=== PATIENT | male | born 1960 | race Caucasian/White ===

== ENCOUNTER → 2016-05-27 | Outpatient (CLI) | payer BC ==
--- NOTE | 2016-05-27 16:31 | CR ---
EXAMINATION: Left knee HISTORY: Pain COMPARISON: None TECHNIQUE: 4 views FINDINGS: There is minimal joint space narrowing within the medial and lateral compartments of the l eft knee. No fracture or acute osseous abnormalities noted. No significant joint effusion or soft ti ssue swelling. Bone mineralization appears normal. IMPRESSION: Minimal joint space narrowing within the medial and lateral compartments.
== END ==
LOC: MW.CHORTHO 11:08
PROVIDERS: ATTEND Physician Assistant
DX: M25.562 Pain in left knee (principal)
CPT/HCPCS: 73564-26-LT; 73564-LT

== ENCOUNTER 2017-07-02 12:25 | Inpatient (IN) | payer BC, OTHER ==
[2017-07-02] MEDS ORDERED: Sodium Chloride 0.9% 10 ML Syringe FLUSH PRN (12:27)
[2017-07-02] MEDS ORDERED: Sodium Chloride 0.9% 2.5 ML Syringe FLUSH PRN (12:27)
[2017-07-02] MEDS ORDERED: Adenosine 6 MG/2 ML SDV ONE (12:31)
--- NOTE | 2017-07-02 12:33 | EDM.PDOC ---
ED HPI GENERAL MEDICAL PROBLEM - General Stated Complaint: PT CAME FROM THE CLINIC Time Seen by Provider: 07/02/17 12:25 Source of Information: Reports: Patient History Limitations: Reports: No Limitations - History of Present Illness INITIAL COMMENTS - FREE TEXT/NARRATIVE: History of present illness: Patient was sent over from Dr. Benoit's clinic for hypoxia. Patient arrived with O2 sats in the 70's with a history of shortness of breath and chest pain for the past 2 days of not feeling well. Patient has a history of melanoma his last chemotherapy was in February doing well. Patient states his last PET scan was negative and has no metastases. Review of systems: As per history of present illness and below otherwise all systems reviewed and negative. Past medical history: As per history of present illness and as reviewed below otherwise noncontributory. Surgical history: As per history of present illness and as reviewed below otherwise noncontributory. Social history: No reported history of drug or alcohol abuse. Family history: As per history of present illness and as reviewed below otherwise noncontributory. Physical exam: General: Well developed, well nourished in NAD HEENT: Atraumatic, normocephalic, pupils reactive, negative for conjunctival pallor or scleral icterus, mucous membranes moist, throat clear, neck supple, nontender, trachea midline. Lungs: Clear to auscultation, breath sounds equal bilaterally, chest nontender. Heart: Tachycardic, regular, negative for clicks, rubs, or JVD. Abdomen: Soft, nondistended, nontender. Negative for masses or hepatosplenomegaly. Negative for costovertebral tenderness. Pelvis: Stable nontender. Genitourinary: Deferred. Rectal: Deferred. Extremities: Atraumatic, negative for cords or calf pain. Neurovascular unremarkable. Neuro: Awake, alert, oriented. Cranial nerves II through XII unremarkable. Cerebellum unremarkable. Motor and sensory unremarkable throughout. Exam nonfocal. Diagnostics: []Blood cultures drawn, EKG shows sinus tachycardia with wide QRS 175. CBC with elevated white count 20,000 with left shift, chemistry showed potassium of 3.2 chloride of 89 otherwise normal, mildly elevated LFTs, d-dimer positive 2.73, lactate +2.2, chest x-ray shows bilateral infiltrates, repeat EKG after oxygen placement shows a heart rate of 109 sinus tachycardia, EtOH 42, CT scan of the chest shows no DVT and bilateral filtrates Therapeutics: []Supplemental oxygen, IV hydration, ceftriaxone 1 g given IV, DuoNebs given Impression: []Bilateral pneumonia Plan: []Admit for IV antibiotics, IV hydration oxygen Definitive disposition and diagnosis as appropriate pending reevaluation and review of above. upper abd Pain Score (Numeric/FACES): 2 - Related Data Allergies Allergy/AdvReac Type Severity Reaction Status Date / Time No Known Allergies Allergy Verified 07/02/17 12:36 Home Meds: Home Meds Levothyroxine 75 mcg PO ACBREAKFAST 07/02/17 [History] Omeprazole 20 mg PO ACBREAKFAST 07/02/17 [History] Potassium Chloride 20 meq PO DAILY 07/02/17 [History] amLODIPine Besylate [Amlodipine Besylate] 5 mg PO DAILY 07/02/17 [History] buPROPion HCl [Wellbutrin SR] 150 mg PO BID 07/02/17 [History] oxyCODONE 07/02/17 [History] predniSONE 07/02/17 [History] ED ROS GENERAL - Review of Systems Review Of Systems: See Below (See history of present illness) ED EXAM, GENERAL - Physical Exam Exam: See Below (See history of present illness) Course - Vital Signs Last Recorded V/S: Last Vital Signs Temp 99 F 07/02/17 16:10 Pulse 128 H 07/02/17 16:10 Resp 18 07/02/17 16:10 BP 153/86 H 07/02/17 16:10 Pulse Ox 87 L 07/02/17 16:10 - Orders/Labs/Meds Orders: Active Orders 24 hr Category Date Time Status Patient Status [ADT] Stat ADT 07/02/17 14:51 Active Oxygen Therapy, ED [RC] ASDIRECTED Care 07/02/17 12:27 Active CULTURE BLOOD [BC] Stat Lab 07/02/17 13:15 Received CULTURE BLOOD [BC] Stat Lab 07/02/17 13:25 Received Sodium Chloride 0.9% [Saline Flush] Med 07/02/17 12:27 Active 10 ml FLUSH ASDIRECTED PRN Sodium Chloride 0.9% [Saline Flush] Med 07/02/17 12:27 Active 2.5 ml FLUSH ASDIRECTED PRN Blood Culture x2 Reflex Set [OM.PC] Stat Oth 07/02/17 13:07 Ordered Saline Lock Insert [OM.PC] Stat Oth 07/02/17 12:27 Ordered Medication Orders Acetaminophen (Tylenol) 650 mg PO Q4H PRN PRN Reason: Pain (mild 1-3) Albuterol/Ipratropium (Duoneb 3.0-0.5 Mg/3 Ml) 3 ml NEB Q4HRRT [facility] Enoxaparin Sodium (Lovenox) 40 mg SUBCUT Q24H [facility] Last Admin: 07/02/17 16:56 Dose: 40 mg Levofloxacin/Dextrose 750 mg/ (Premix) 150 mls @ 100 mls/hr IV Q24H [facility] Last Admin: 07/02/17 16:55 Dose: 100 mls/hr Piperacillin Sod/Tazobactam (Sod 4.5 gm/ Sodium Chloride) 100 mls @ 100 mls/hr IV Q6H [facility] Last Admin: 07/02/17 18:42 Dose: 100 mls/hr Vancomycin HCl 1 gm/ Sodium (Chloride) 250 mls @ 250 mls/hr IV Q8H [facility] Sodium Chloride (Normal Saline) 1,000 mls @ 150 mls/hr IV ASDIRECTED [facility] Last Admin: 07/02/17 18:45 Dose: 150 mls/hr Ibuprofen (Motrin) 600 mg PO Q6H PRN PRN Reason: Pain Last Admin: 07/02/17 18:42 Dose: 600 mg Insulin Aspart (Novolog) 0 unit SUBCUT TIDAC [facility]; Protocol Last Admin: 07/02/17 18:12 Dose: 1 unit Ondansetron HCl (Zofran) 4 mg IVPUSH Q4H PRN PRN Reason: Nausea Oxycodone HCl (Oxycodone) 5 mg PO Q4H PRN PRN Reason: Pain Sodium Chloride (Saline Flush) 10 ml FLUSH ASDIRECTED PRN PRN Reason: Keep Vein Open Sodium Chloride (Saline Flush) 2.5 ml FLUSH ASDIRECTED PRN PRN Reason: Keep Vein Open Vancomycin HCl (Pharmacy To Dose - Vancomycin) 1 dose .XX ASDIRECTED [facility] Labs: Laboratory Tests 07/02/17 07/02/17 07/02/17 Range/Units 12:35 12:35 12:35 WBC 28.94 H (4.0-11.0) K/uL RBC 4.24 L (4.50-5.90) M/uL Hgb 15.1 (13.0-17.0) g/dL Hct 43.3 (38.0-50.0) % MCV 102.1 H (80.0-98.0) fL MCH 35.6 H (27.0-32.0) pg MCHC 34.9 (31.0-37.0) g/dL RDW Std Deviation 48.3 (28.0-62.0) fl RDW Coeff of Joseph 13 (11.0-15.0) % Plt Count 225 (150-400) K/uL MPV 9.50 (7.40-12.00) fL Add Manual Diff YES Neutrophils % (Manual) 91 H (48.0-80.0) % Lymphocytes % (Manual) 4 L (16.0-40.0) % Monocytes % (Manual) 5 (0.0-15.0) % Nucleated RBC % 0.6 /100WBC Absolute Seg Neuts 26.3 H (1.4-5.7) Lymphocytes # (Manual) 1.2 (0.6-2.4) Monocytes # (Manual) 1.4 H (0.0-0.8) Nucleated RBCs # 0 K/uL D-Dimer, Quantitative 2.73 H (0.0-0.52) mg/LFEU Lactate (0.20-2.00) mmol/L Sodium 135 L (136-148) mmol/L Potassium 3.0 L (3.5-5.1) mmol/L Chloride 89 L (98-107) mmol/L Carbon Dioxide 31.4 (21.0-32.0) mmol/L BUN 11 (7.0-18.0) mg/dL Creatinine 0.6 L (0.8-1.3) mg/dL Est Cr Clr Drug Dosing 141.12 mL/min Estimated GFR (MDRD) > 60.0 ml/min Glucose 175 H (74-106) mg/dL Calcium 8.4 L (8.5-10.1) mg/dL Total Bilirubin 1.1 H (0.2-1.0) mg/dL AST 55 H (15-37) IU/L ALT 36 (14-63) IU/L Alkaline Phosphatase 188 H (46-116) U/L Troponin I < 0.050 (0.000-0.056) ng/mL B-Natriuretic Peptide (<100) PG/ML Total Protein 6.1 L (6.4-8.2) g/dL Albumin 2.1 L (3.4-5.0) g/dL Globulin 4.0 H (2.0-3.5) g/dL Albumin/Globulin Ratio 0.5 L (1.3-2.8) Ethyl Alcohol mg/dL 07/02/17 07/02/17 07/02/17 Range/Units 12:35 12:35 12:35 WBC (4.0-11.0) K/uL RBC (4.50-5.90) M/uL Hgb (13.0-17.0) g/dL Hct (38.0-50.0) % MCV (80.0-98.0) fL MCH (27.0-32.0) pg MCHC (31.0-37.0) g/dL RDW Std Deviation (28.0-62.0) fl RDW Coeff of Joseph (11.0-15.0) % Plt Count (150-400) K/uL MPV (7.40-12.00) fL Add Manual Diff Neutrophils % (Manual) (48.0-80.0) % Lymphocytes % (Manual) (16.0-40.0) % Monocytes % (Manual) (0.0-15.0) % Nucleated RBC % /100WBC Absolute Seg Neuts (1.4-5.7) Lymphocytes # (Manual) (0.6-2.4) Monocytes # (Manual) (0.0-0.8) Nucleated RBCs # K/uL D-Dimer, Quantitative (0.0-0.52) mg/LFEU Lactate 2.2 H (0.20-2.00) mmol/L Sodium (136-148) mmol/L Potassium (3.5-5.1) mmol/L Chloride (98-107) mmol/L Carbon Dioxide (21.0-32.0) mmol/L BUN (7.0-18.0) mg/dL Creatinine (0.8-1.3) mg/dL Est Cr Clr Drug Dosing mL/min Estimated GFR (MDRD) ml/min Glucose (74-106) mg/dL Calcium (8.5-10.1) mg/dL Total Bilirubin (0.2-1.0) mg/dL AST (15-37) IU/L ALT (14-63) IU/L Alkaline Phosphatase (46-116) U/L Troponin I (0.000-0.056) ng/mL B-Natriuretic Peptide 42 (<100) PG/ML Total Protein (6.4-8.2) g/dL Albumin (3.4-5.0) g/dL Globulin (2.0-3.5) g/dL Albumin/Globulin Ratio (1.3-2.8) Ethyl Alcohol 42 mg/dL Meds: Medications Generic Name Dose Route Start Last Admin Trade Name Freq PRN Reason Stop Dose Admin Acetaminophen 650 mg 07/02/17 15:34 Tylenol PO Q4H PRN Pain (mild 1-3) Albuterol/Ipratropium 3 ml 07/02/17 18:00 Duoneb 3.0-0.5 Mg/3 Ml NEB Q4HRRT [facility] Enoxaparin Sodium 40 mg 07/02/17 15:45 07/02/17 16:56 Lovenox SUBCUT 40 mg Q24H [facility] Administration Levofloxacin/Dextrose 750 mg/ 150 mls @ 100 mls/hr 07/02/17 15:45 07/02/17 16 :55 Premix IV 100 mls/hr Q24H [facility] Administration Piperacillin Sod/Tazobactam 100 mls @ 100 mls/hr 07/02/17 18:00 07/02/17 18: 42 Sod 4.5 gm/ Sodium Chloride IV 100 mls/hr Q6H [facility] Administration Vancomycin HCl 1 gm/ Sodium 250 mls @ 250 mls/hr 07/02/17 19:00 Chloride IV Q8H [facility] Sodium Chloride 1,000 mls @ 150 mls/hr 07/02/17 16:45 07/02/17 18:45 Normal Saline IV 150 mls/hr ASDIRECTED [facility] Administration Ibuprofen 600 mg 07/02/17 17:34 07/02/17 18:42 Motrin PO 600 mg Q6H PRN Administration Pain Insulin Aspart 0 unit 07/02/17 17:24 07/02/17 18:12 Novolog SUBCUT 1 unit TIDAC [facility] Administration Protocol Ondansetron HCl 4 mg 07/02/17 15:34 Zofran IVPUSH Q4H PRN Nausea Oxycodone HCl 5 mg 07/02/17 17:34 Oxycodone PO Q4H PRN Pain Sodium Chloride 10 ml 07/02/17 12:27 Saline Flush FLUSH ASDIRECTED PRN Keep Vein Open Sodium Chloride 2.5 ml 07/02/17 12:27 Saline Flush FLUSH ASDIRECTED PRN Keep Vein Open Vancomycin HCl 1 dose 07/02/17 15:45 Pharmacy To Dose - Vancomycin .XX ASDIRECTED [facility] Discontinued Medications Generic Name Dose Route Start Last Admin Trade Name Freq PRN Reason Stop Dose Admin Albuterol/Ipratropium 3 ml 07/02/17 12:52 07/02/17 12:58 Duoneb 3.0-0.5 Mg/3 Ml NEB 07/02/17 12:53 3 ml ONETIME ONE Administration Albuterol/Ipratropium Confirm 07/02/17 12:54 07/02/17 13:11 Duoneb 3.0-0.5 Mg/3 Ml Administered 07/02/17 12:55 Not Given Dose 3 ml .ROUTE .STK-MED ONE Albuterol/Ipratropium 3 ml 07/02/17 14:43 07/02/17 15:01 Duoneb 3.0-0.5 Mg/3 Ml NEB 07/02/17 14:44 3 ml ONETIME ONE Administration Lactated Ringer's 1,000 mls @ 999 mls/hr 07/02/17 12:38 07/02/17 12:38 Ringers, Lactated IV 07/02/17 13:38 999 mls/hr .BOLUS ONE Administration Ceftriaxone Sodium/Dextrose 1 50 mls @ 100 mls/hr 07/02/17 13:13 07/02/17 13: 48 gm/ Premix IV 07/02/17 13:42 100 mls/hr ONETIME ONE Administration Sodium Chloride 1,000 mls @ 125 mls/hr 07/02/17 13:45 07/02/17 13:44 Normal Saline IV 125 mls/hr ASDIRECTED [facility] Administration Sodium Chloride 1,000 mls @ 999 mls/hr 07/02/17 16:35 07/02/17 17:01 Normal Saline IV 07/02/17 17:35 999 mls/hr STAT ONE Administration Magnesium Sulfate 2 gm/ Premix 50 mls @ 50 mls/hr 07/02/17 17:34 07/02/17 18: 13 IV 07/02/17 18:33 50 mls/hr ONETIME ONE Administration Iopamidol 50 ml 07/02/17 16:08 07/02/17 16:09 Isovue Multipack-370 (76%) IVPUSH 07/02/17 16:09 50 ml ONETIME ONE Administration Potassium Chloride 40 meq 07/02/17 14:53 07/02/17 15:09 Klor-Con M20 PO 07/02/17 14:54 40 meq ONETIME ONE Administration Departure - Departure Time of Disposition: 18:49 Disposition: Admitted As Inpatient 66 Condition: Fair Clinical Impression: Bilateral pneumonia Qualifiers: Pneumonia type: due to unspecified organism Lung location: lower lobe of lung Qualified Code(s): J18.1 - Lobar pneumonia, unspecified organism - Discharge Information - My Orders Last 24 Hours: My Active Orders 07/02/17 12:27 Oxygen Therapy, ED [RC] ASDIRECTED Sodium Chloride 0.9% [Saline Flush] 10 ml FLUSH ASDIRECTED PRN Sodium Chloride 0.9% [Saline Flush] 2.5 ml FLUSH ASDIRECTED PRN Saline Lock Insert [OM.PC] Stat 07/02/17 13:07 Blood Culture x2 Reflex Set [OM.PC] Stat 07/02/17 13:15 CULTURE BLOOD [BC] Stat 07/02/17 13:25 CULTURE BLOOD [BC] Stat 07/02/17 14:51 Patient Status [ADT] Stat - Assessment/Plan Last 24 Hours: My Active Orders 07/02/17 12:27 Oxygen Therapy, ED [RC] ASDIRECTED Sodium Chloride 0.9% [Saline Flush] 10 ml FLUSH ASDIRECTED PRN Sodium Chloride 0.9% [Saline Flush] 2.5 ml FLUSH ASDIRECTED PRN Saline Lock Insert [OM.PC] Stat 07/02/17 13:07 Blood Culture x2 Reflex Set [OM.PC] Stat 07/02/17 13:15 CULTURE BLOOD [BC] Stat 07/02/17 13:25 CULTURE BLOOD [BC] Stat 07/02/17 14:51 Patient Status [ADT] Stat
[2017-07-02] MEDS ORDERED: Lactated Ringers 1,000 ML IV ONE (12:38)
[2017-07-02] MEDS ORDERED: Albuterol/Ipratropium 3.0-0.5 MG/3 ML Neb Soln NEB ONE ×2 (12:52→14:43)
[2017-07-02] MEDS ORDERED: Albuterol/Ipratropium 3.0-0.5 MG/3 ML Neb Soln ONE (12:54)
--- NOTE | 2017-07-02 13:12 | CR ---
EXAMINATION: Portable chest radiograph. HISTORY: Shortness of breath. FINDINGS: The trachea is midline. The cardiomediastinal silhouette is within normal limits. No leg infiltrates noted within the right suprahilar region and within the lung bases bilaterally. No pleural effusion o r pneumothorax. Osseous structures appear unremarkable. IMPRESSION: Very bilateral pulmonary infiltrates, correlate clinically for an infectious etiology.
[2017-07-02] MEDS ORDERED: cefTRIAXone 1 GM in Premix Bag 1 BAG IV ONE (13:13)
[2017-07-02] MEDS ORDERED: Sodium Chloride 0.9% 1,000 ML IV SCH (13:45)
[2017-07-02 14:29] LABS: CHLORIDE,CL 89 mmol/L (98-107); SODIUM,NA 135 mmol/L (136-148)
[2017-07-02] MEDS ORDERED: Potassium Chloride 20 MEQ Tab.ER PO ONE (14:53)
[2017-07-02] MEDS ORDERED: Ondansetron 4 MG/2 ML SDV IVPUSH PRN (15:34)
[2017-07-02] MEDS ORDERED: Acetaminophen 325 MG Tab PO PRN (15:34)
--- NOTE | 2017-07-02 15:47 | PCM.HP ---
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 He was noted to be hypoxic on room air at 59%. He was brought to the ED for further work-up. He reports he started feeling ill last week and noticing dyspnea and productive cough. He denies fevers, but reports body aches and general malaise. No chest pain, but has noticed some palpitations/fluttering intermittently. Reports his phlegm has been a "rainbow of colors" but no bloody sputum. No abdominal pain or urinary troubles. He has had a poor appetite and hasn't been eating well. He reports he smokes 1 ppd or cigarettes, with some gum to help with quitting, he reports daily alcohol use, 3-4 drinks daily, without having withdrawl symptoms ever. He also reports smoking marijuana for help with pain from melanoma, but has not used this in awhile. In the ED leukocytosis noted at 28,940, D dimer 2.73, Lactate 2.2 Na 135, K+ 3.0 Cl 89, BUN 11, Cr 0.6, total bili 1.1, AST 55, ALT 36, Alk phos 188, which are near baseline. CXR revealed bilateral pulmonary infiltrates. HR noted to be tachycardic with a wide complex which resolved with oxygen administration, he has continued to have tachycardia 110-120s. he was treated with, PO potassium, Rocephin and 1 L NS bolus in the ED. He will be admitted with sepsis, acute hypoxic respiratory failure, and severe CAP. PCP, Dr Benoit. Oncology, Dr Hilton. upper abd Pain Score (Numeric/FACES): 2 - Related Data Allergies/Adverse Reactions: Allergies Allergy/AdvReac Type Severity Reaction Status Date / Time No Known Allergies Allergy Verified 07/02/17 12:36 Home Medications: Home Meds Levothyroxine 75 mcg PO ACBREAKFAST 07/02/17 [History] Omeprazole 20 mg PO ACBREAKFAST 07/02/17 [History] Potassium Chloride 20 meq PO DAILY 07/02/17 [History] amLODIPine Besylate [Amlodipine Besylate] 5 mg PO DAILY 07/02/17 [History] buPROPion HCl [Wellbutrin SR] 150 mg PO BID 07/02/17 [History] oxyCODONE 07/02/17 [History] predniSONE 07/02/17 [History] Past Medical History Cardiovascular History: Reports: Hypertension. Denies: Afib, Blood Clots/VTE/ DVT, CAD, VT Respiratory History: Reports: None. Denies: Asthma, COPD Gastrointestinal History: Reports: GERD Genitourinary History: Reports: None. Denies: Chronic Renal Insuffiency Musculoskeletal History: Reports: Neck Pain, Chronic Neurological History: Reports: None. Denies: CVA, TIA Psychiatric History: Reports: Addiction, Depression Endocrine/Metabolic History: Reports: Diabetes, Type II (steroid induced.), Hypothyroidism Oncologic (Cancer) History: Reports: Malignant Melanoma, Metastatic (melanoma to L axilla with spread to thyroid) - Past Surgical History Dermatological Surgical History: Reports: Skin Biopsy Social & Family History - Family History Family Medical History: Noncontributory - Tobacco Use Smoking Status *Q: Current Every Day Smoker Years of Tobacco use: 36 Packs/Tins Daily: 1 - Caffeine Use Caffeine Use: Reports: Coffee, Soda, Tea - Alcohol Use Days Per Week of Alcohol Use: 7 Number of Drinks Per Day: 3 Total Drinks Per Week: 21 Alcohol Use Frequency: Daily - Recreational Drug Use Recreational Drug Use: Yes Drug Use in Last 12 Months: Yes Recreational Drug Type: Reports: Marijuana/Hashish Recreational Drug Use Frequency: Monthly - Living Situation & Occupation Living situation: Reports: Alone Occupation: Employed H&P Review of Systems - Review of Systems: Review Of Systems: See Below General: Reports: Malaise, Weakness, Fatigue, Decreased Appetite HEENT: Reports: Headaches. Denies: Sinus Congestion, Sore Throat, Vertigo Pulmonary: Reports: Shortness of Breath, Cough, Sputum. Denies: Hemoptysis Cardiovascular: Reports: Palpitations, Dyspnea on Exertion. Denies: Chest Pain , Edema, Lightheadedness Gastrointestinal: Reports: No Symptoms. Denies: Abdominal Pain, Black Stool, Bloody Stool, Constipation, Nausea, Vomiting Genitourinary: Reports: No Symptoms. Denies: Dysuria, Frequency, Burning Musculoskeletal: Reports: Neck Pain (baseline and chronic, no changes.) Skin: Reports: No Symptoms Psychiatric: Reports: No Symptoms Neurological: Reports: No Symptoms Hematologic/Lymphatic: Reports: No Symptoms Immunologic: Reports: No Symptoms Exam - Exam Exam: See Below - Vital Signs Vital Signs: Last Vital Signs Temp 98.2 F 07/02/17 14:21 Pulse 114 H 07/02/17 14:21 Resp 16 07/02/17 14:21 BP 138/79 07/02/17 14:21 Pulse Ox 96 07/02/17 15:11 Weight: 72.575 kg - Exam General: Alert, Oriented, Cooperative, Mild Distress (dyspnea) HEENT: Nares Patent, Posterior Pharynx Clear, Pupils Equal, Pupils Reactive. No : Mucosa Moist & [place] (dry) Neck: Supple, Trachea Midline, Full Range of Motion (does reposition a lot due to neck pain and becoming uncomfortable in one position. reports this is normal for him. ). No: Lymphadenopathy Lungs: Crackles (R mid and upper lobes), Rhonchi. No: Normal Respiratory Effort (dyspnea noted) Cardiovascular: Regular Rhythm, Normal S1, Normal S2, Tachycardia. No: Systolic Murmur GI/Abdominal Exam: Normal Bowel Sounds, Soft, Non-Tender, No Organomegaly, No Distention, No Abnormal Bruit, No Mass, Pelvis Stable Back Exam: Normal Inspection, Full Range of Motion, NT Extremities: Normal Inspection, Normal Range of Motion, Non-Tender, No Pedal Edema, Normal Capillary Refill Skin: Dry, Other (dry patchy areas of skin to legs and back. ) Neuro Extensive - Mental Status: Alert, Oriented x3, Normal Mood/Affect, Normal Cognition Neuro Extensive - Motor, Sensory, Reflexes: CN II-XII Intact, Normal Gait Psychiatric: Alert, Normal Affect, Normal Mood - Patient Data Lab Results Last 24 hrs: Laboratory Results - last 24 hr 07/02/17 07/02/17 07/02/17 Range/Units 12:35 12:35 12:35 WBC 28.94 H (4.0-11.0) K/uL RBC 4.24 L (4.50-5.90) M/uL Hgb 15.1 (13.0-17.0) g/dL Hct 43.3 (38.0-50.0) % MCV 102.1 H (80.0-98.0) fL MCH 35.6 H (27.0-32.0) pg MCHC 34.9 (31.0-37.0) g/dL RDW Std Deviation 48.3 (28.0-62.0) fl RDW Coeff of Joseph 13 (11.0-15.0) % Plt Count 225 (150-400) K/uL MPV 9.50 (7.40-12.00) fL Add Manual Diff YES Neutrophils % (Manual) 91 H (48.0-80.0) % Lymphocytes % (Manual) 4 L (16.0-40.0) % Monocytes % (Manual) 5 (0.0-15.0) % Nucleated RBC % 0.6 /100WBC Absolute Seg Neuts 26.3 H (1.4-5.7) Lymphocytes # (Manual) 1.2 (0.6-2.4) Monocytes # (Manual) 1.4 H (0.0-0.8) Nucleated RBCs # 0 K/uL D-Dimer, Quantitative 2.73 H (0.0-0.52) mg/LFEU Lactate (0.20-2.00) mmol/L Sodium 135 L (136-148) mmol/L Potassium 3.0 L (3.5-5.1) mmol/L Chloride 89 L (98-107) mmol/L Carbon Dioxide 31.4 (21.0-32.0) mmol/L BUN 11 (7.0-18.0) mg/dL Creatinine 0.6 L (0.8-1.3) mg/dL Est Cr Clr Drug Dosing 141.12 mL/min Estimated GFR (MDRD) > 60.0 ml/min Glucose 175 H (74-106) mg/dL Calcium 8.4 L (8.5-10.1) mg/dL Total Bilirubin 1.1 H (0.2-1.0) mg/dL AST 55 H (15-37) IU/L ALT 36 (14-63) IU/L Alkaline Phosphatase 188 H (46-116) U/L Troponin I < 0.050 (0.000-0.056) ng/mL B-Natriuretic Peptide (<100) PG/ML Total Protein 6.1 L (6.4-8.2) g/dL Albumin 2.1 L (3.4-5.0) g/dL Globulin 4.0 H (2.0-3.5) g/dL Albumin/Globulin Ratio 0.5 L (1.3-2.8) Ethyl Alcohol mg/dL 07/02/17 07/02/17 07/02/17 Range/Units 12:35 12:35 12:35 WBC (4.0-11.0) K/uL RBC (4.50-5.90) M/uL Hgb (13.0-17.0) g/dL Hct (38.0-50.0) % MCV (80.0-98.0) fL MCH (27.0-32.0) pg MCHC (31.0-37.0) g/dL RDW Std Deviation (28.0-62.0) fl RDW Coeff of Joseph (11.0-15.0) % Plt Count (150-400) K/uL MPV (7.40-12.00) fL Add Manual Diff Neutrophils % (Manual) (48.0-80.0) % Lymphocytes % (Manual) (16.0-40.0) % Monocytes % (Manual) (0.0-15.0) % Nucleated RBC % /100WBC Absolute Seg Neuts (1.4-5.7) Lymphocytes # (Manual) (0.6-2.4) Monocytes # (Manual) (0.0-0.8) Nucleated RBCs # K/uL D-Dimer, Quantitative (0.0-0.52) mg/LFEU Lactate 2.2 H (0.20-2.00) mmol/L Sodium (136-148) mmol/L Potassium (3.5-5.1) mmol/L Chloride (98-107) mmol/L Carbon Dioxide (21.0-32.0) mmol/L BUN (7.0-18.0) mg/dL Creatinine (0.8-1.3) mg/dL Est Cr Clr Drug Dosing mL/min Estimated GFR (MDRD) ml/min Glucose (74-106) mg/dL Calcium (8.5-10.1) mg/dL Total Bilirubin (0.2-1.0) mg/dL AST (15-37) IU/L ALT (14-63) IU/L Alkaline Phosphatase (46-116) U/L Troponin I (0.000-0.056) ng/mL B-Natriuretic Peptide 42 (<100) PG/ML Total Protein (6.4-8.2) g/dL Albumin (3.4-5.0) g/dL Globulin (2.0-3.5) g/dL Albumin/Globulin Ratio (1.3-2.8) Ethyl Alcohol 42 mg/dL Result Diagrams: 07/02/17 12:35 07/02/17 12:35 EKG INTERPRETATION EKG Date: 07/02/17 Rhythm: NSR (tachycardia) P-Wave: Present QRS: Normal ST-T: Normal QT: Normal *Q Meaningful Use (ADM) - VTE Risk Assess *Q Each Risk Factor Represents 1 Point: Age 41 - 59 years, Sepsis, Serious lung disease including pneumonia Total Score 1 Point Risk Factors: 3 Each Risk Factor Represents 2 Points: Malignancy (present or previous) Total Score 2 Point Risk Factors: 2 Each Risk Factor Represents 3 Points: None Total Score 3 Point Risk Factors: 0 Each Risk Factor Represents 5 Points: None Total Score 5 Point Risk Factors: 0 Venous Thromboembolism Risk Factor Score *Q: 5 - Problem List (1) Acute respiratory failure with hypoxemia SNOMED Code(s): 020254342 ICD Code: J96.01 - ACUTE RESPIRATORY FAILURE WITH HYPOXIA Status: Acute Current Visit: Yes (2) Bilateral pneumonia SNOMED Code(s): 043172684 ICD Code: J18.9 - PNEUMONIA, UNSPECIFIED ORGANISM Status: Acute Current Visit: Yes Qualifiers: Pneumonia type: due to unspecified organism Lung location: lower lobe of lung Qualified Code(s): J18.1 - Lobar pneumonia, unspecified organism (3) Gram-negative infection SNOMED Code(s): 778246652 ICD Code: A49.9 - BACTERIAL INFECTION, UNSPECIFIED Status: Suspected Current Visit: Yes (4) Sepsis SNOMED Code(s): 44268582 ICD Code: A41.9 - SEPSIS, UNSPECIFIED ORGANISM Status: Acute Current Visit: Yes (5) Malignant melanoma, metastatic SNOMED Code(s): 777882834 ICD Code: C79.9 - SECONDARY MALIGNANT NEOPLASM OF UNSPECIFIED SITE Status: Chronic Current Visit: Yes (6) HTN (hypertension) SNOMED Code(s): 78394312 ICD Code: I10 - ESSENTIAL (PRIMARY) HYPERTENSION Status: Chronic Current Visit: Yes Qualifiers: Hypertension type: essential hypertension Qualified Code(s): I10 - Essential (primary) hypertension (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 SNOMED Code(s): 223893686 ICD Code: T38.0X1A - POISONING BY GLUCOCORT/SYNTH ANALOG, ACCIDENTAL, INIT; D84.8 - OTHER SPECIFIED IMMUNODEFICIENCIES Status: Chronic Current Visit: Yes (8) Hypothyroidism SNOMED Code(s): 61683746 ICD Code: E03.9 - HYPOTHYROIDISM, UNSPECIFIED Status: Chronic Current Visit: Yes Qualifiers: Hypothyroidism type: acquired Qualified Code(s): E03.9 - Hypothyroidism, unspecified (9) DM type 2 (diabetes mellitus, type 2) SNOMED Code(s): 68320401 ICD Code: E11.9 - TYPE 2 DIABETES MELLITUS WITHOUT COMPLICATIONS Status: Chronic Current Visit: Yes Qualifiers: Diabetes mellitus mcc insulin use: with roasterman use Diabetes mellitus complication status: without complication Qualified Code(s): E11.9 - Type 2 diabetes mellitus without complications; Z79.4 - MCFP (current) use of insulin Problem List Initiated/Reviewed/Updated: Yes Orders Last 24hrs: Active Orders 24 hr Category Date Time Status Patient Status [ADT] Stat ADT 07/02/17 14:51 Active Ambulate [RC] ASDIRECTED Care 07/02/17 15:34 Ordered Cardiac Monitoring [RC] . DIRECTED Care 07/02/17 12:27 Active EKG Documentation Completion [RC] STAT Care 07/02/17 12:27 Active Intake and Output [RC] QSHIFT Care 07/02/17 15:34 Ordered Overnight Pulse Oximetry [RC] Click to Edit Care 07/02/17 15:44 Ordered Oxygen Therapy [RC] PRN Care 07/02/17 15:34 Ordered Oxygen Therapy, ED [RC] ASDIRECTED Care 07/02/17 12:27 Active RT Aerosol Therapy [RC] ASDIRECTED Care 07/02/17 12:52 Active RT Aerosol Therapy [RC] ASDIRECTED Care 07/02/17 14:44 Active RT Aerosol Therapy [RC] ASDIRECTED Care 07/02/17 15:37 Ordered Telemetry Monitoring [Cardiac Monitoring] [RC] . Care 07/02/17 15:45 Ordered DIRECTED VTE/DVT Education [RC] PER UNIT ROUTINE Care 07/02/17 15:34 Ordered Vital Signs [RC] Q4H Care 07/02/17 15:34 Ordered Regular Diet [DIET] Diet 07/02/17 Dinner Ordered Ang Chest [CT] Stat Exams 07/02/17 14:33 Ordered CBC WITH AUTO DIFF [HEME] AM Lab 07/03/17 05:11 Ordered CBC WITH AUTO DIFF [HEME] AM Lab 07/04/17 05:11 Ordered CBC WITH AUTO DIFF [HEME] AM Lab 07/05/17 05:11 Ordered CBC WITH AUTO DIFF [HEME] AM Lab 07/06/17 05:11 Ordered COMPREHENSIVE METABOLIC PN,CMP [CHEM] AM Lab 07/03/17 05:11 Ordered COMPREHENSIVE METABOLIC PN,CMP [CHEM] AM Lab 07/04/17 05:11 Ordered COMPREHENSIVE METABOLIC PN,CMP [CHEM] AM Lab 07/05/17 05:11 Ordered COMPREHENSIVE METABOLIC PN,CMP [CHEM] AM Lab 07/06/17 05:11 Ordered CULTURE BLOOD [BC] Stat Lab 07/02/17 13:15 Received CULTURE BLOOD [BC] Stat Lab 07/02/17 13:25 Received CULTURE SPUTUM + SMEAR [RM] Stat Lab 07/02/17 15:34 Ordered INFLUENZA A+B AG SCREEN [RM] Routine Lab 07/02/17 15:40 Ordered LACTIC ACID,WHOLE BLOOD [BG] Q5H Lab 07/02/17 17:30 Ordered LACTIC ACID,WHOLE BLOOD [BG] Q5H Lab 07/02/17 22:30 Ordered MAGNESIUM [CHEM] AM Lab 07/03/17 05:11 Ordered MAGNESIUM [CHEM] AM Lab 07/04/17 05:11 Ordered MAGNESIUM [CHEM] AM Lab 07/05/17 05:11 Ordered MAGNESIUM [CHEM] AM Lab 07/06/17 05:11 Ordered MAGNESIUM [CHEM] Routine Lab 07/02/17 15:45 Ordered UA W/MICROSCOPIC [URIN] Stat Lab 07/02/17 15:34 Ordered Acetaminophen [Tylenol] Med 07/02/17 15:34 Ordered 650 mg PO Q4H PRN Albuterol/Ipratropium [DuoNeb 3.0-0.5 MG/3 ML] Med 07/02/17 18:00 Ordered 3 ml NEB Q4HRRT Enoxaparin [Lovenox] Med 07/02/17 15:45 Ordered 40 mg SUBCUT Q24H Levofloxacin/Dextrose 5%-Water [Levaquin in D5W 750 MG/ Med 07/02/17 15:45 Ordered 150 ML] 750 mg Premix Bag 1 bag IV Q24H Ondansetron [Zofran] Med 07/02/17 15:34 Ordered 4 mg IVPUSH Q4H PRN Piperacillin/Tazobactam [Piperacil-Tazobact] 4.5 gm Med 07/02/17 15:45 Ordered Sodium Chloride 0.9% [Normal Saline] 100 ml IV Q6H Sodium Chloride 0.9% [Normal Saline] 1,000 ml Med 07/02/17 13:45 Active IV ASDIRECTED Sodium Chloride 0.9% [Saline Flush] Med 07/02/17 12:27 Active 10 ml FLUSH ASDIRECTED PRN Sodium Chloride 0.9% [Saline Flush] Med 07/02/17 12:27 Active 2.5 ml FLUSH ASDIRECTED PRN Vancomycin Pharmacy to Dose [Pharmacy to Dose - Med 07/02/17 15:45 Ordered Vancomycin] 1 dose .XX ASDIRECTED Blood Culture x2 Reflex Set [OM.PC] Stat Oth 07/02/17 13:07 Ordered Pulse Oximetry Continuous Monitoring [OM.PC] Routine Oth 07/02/17 15:44 Ordered Saline Lock Insert [OM.PC] Stat Oth 07/02/17 12:27 Ordered Resuscitation Status Routine Resus Stat 07/02/17 15:34 Ordered Medication Orders Acetaminophen (Tylenol) 650 mg PO Q4H PRN PRN Reason: Pain (mild 1-3) Albuterol/Ipratropium (Duoneb 3.0-0.5 Mg/3 Ml) 3 ml NEB Q4HRRT [facility]GELITO Enoxaparin Sodium (Lovenox) 40 mg SUBCUT Q24H ANGELITO Sodium Chloride (Normal Saline) 1,000 mls @ 125 mls/hr IV ASDIRECTED ANGELITO Last Admin: 07/02/17 13:44 Dose: 125 mls/hr Levofloxacin/Dextrose 750 mg/ (Premix) 150 mls @ 100 mls/hr IV Q24H [facility] Piperacillin Sod/Tazobactam (Sod 4.5 gm/ Sodium Chloride) 100 mls @ 100 mls/hr IV Q6H [facility] Ondansetron HCl (Zofran) 4 mg IVPUSH Q4H PRN PRN Reason: Nausea Sodium Chloride (Saline Flush) 10 ml FLUSH ASDIRECTED PRN PRN Reason: Keep Vein Open Sodium Chloride (Saline Flush) 2.5 ml FLUSH ASDIRECTED PRN PRN Reason: Keep Vein Open Vancomycin HCl (Pharmacy To Dose - Vancomycin) 1 dose .XX ASDIRECTED [facility] Assessment/Plan Comment:: This 56 flor old male admitted with acute hypoxic respiratory failure, sepsis and severe community acquired pneumonia 1. Sepsis: Secondary to severe CAP, will treat for possible gram negative infection due to immunocompromised state with Levaquin, Zosyn and Vancomycin. Trend lactic acid, resuscitate with IVFs, will give another bolus now due tachycardia. BC pending, sputum culture pending and UA/UC pending as well. Oxygen for acute hypoxic respiratory failure, continuous pulse oximetry. D dimer elevated in ED, CT angio obtained of chest, which revealed patchy ground glass opacity bilaterally, most notable to right upper lobe, no Pulmonary Embolism identified, left axillary lymphadenopathy and no pulmonary emphysema. Sputum gram stain reveals few epithelial cells, abundant gram positive cocci in pain and clusters and abundant gram negative rods. Will obtain influenza swab. 2. Tachycardia: Likely secondary to above, IVF resuscitation and monitor on telemetry. Supplement Potassium and Magnesium. 3. HTN: Monitor for now. Hold home medications due to sepsis. Reassess in am. 4. Steroid induced DM: Continue Tresiba nightly. will check BS TIDAC and use SSI due to severe infection. 5. Hypothyroid: Stable, continue Levothyroxine. 6. Metastatic melanoma: Has been stable, per patient reports two most recent PET scans have been stable. Continue Prednisone 20 mg daily 7. Neck pain: Stable. Continue Motrin and Oxycodone. VTE prophylaxis: Lovenox. Dispo: 3-4 days pending improvement.
[2017-07-02] MEDS ORDERED: Iopamidol 755 MG/ML 200 ML Multipack Bottle IVPUSH ONE (16:08)
--- NOTE | 2017-07-02 16:18 | CT ---
EXAMINATION: CTA chest HISTORY: Pain COMPARISON: Radiographs from the same day TECHNIQUE: Axial CT images obtained through the chest following the administration of 50 mL of Isovue -370 in the right antecubital fossa. Due to poor bolus timing and additional scan was performed. Leonid nal and sagittal reconstructions obtained. FINDINGS: Groundglass opacities are noted within the right upper lobe, and less so within the right m iddle lobe and along the left major fissure within the left upper lobe. Trace bilateral pleural effus ions. Mild dependent atelectasis. The heart is normal in size without a pericardial effusion. Thoraci c aorta is normal in caliber. Main and central pulmonary arteries are patent without a identified pul monary embolism. No mediastinal or hilar lymphadenopathy. Central airways are clear. Left axillary ly mphadenopathy is noted measuring up to 2.5 cm in the short axis. No suspicious osseous abnormalities. IMPRESSION: 1. Patchy groundglass noted bilaterally most notable within the right upper lobe. Differential includ es an atypical infectious etiology, pulmonary edema, alveolar proteinosis, and metastatic disease is not excluded. 2. Left axillary lymphadenopathy. 3. No pulmonary emphysema with some identified.
[2017-07-02] MEDS ORDERED: Sodium Chloride 0.9% 1,000 ML IV ONE (16:35)
[2017-07-02] MEDS: Levofloxacin/Dextrose 5%-Water 750 MG in Premix Bag 1 BAG IV SCH (16:55)
[2017-07-02] MEDS: Enoxaparin 40 MG/0.4 ML Syringe SUBCUT SCH (16:56)
[2017-07-02] MEDS ORDERED: Magnesium Sulfate/Water 2 GM in Premix Bag 1 BAG IV ONE (17:34)
[2017-07-02] MEDS ORDERED: oxyCODONE 5 MG Tab PO PRN (17:34)
[2017-07-02] MEDS: Insulin Aspart 100 Units/ML 3 ML Pen SUBCUT SCH (18:12)
[2017-07-02] MEDS: Piperacillin/Tazobactam 4.5 GM in Sodium Chloride 0.9% 100 ML IV SCH ×2 (18:42→23:13)
[2017-07-02] MEDS: Ibuprofen 600 MG Tab PO PRN (18:42)
[2017-07-02] MEDS: Sodium Chloride 0.9% 1,000 ML IV SCH (18:45)
[2017-07-02] MEDS: Albuterol/Ipratropium 3.0-0.5 MG/3 ML Neb Soln NEB SCH ×2 (19:08→21:59)
[2017-07-02] MEDS ORDERED: Sodium Chloride 0.9% 250 ML ONE (20:49)
[2017-07-03] MEDS: Ibuprofen 600 MG Tab PO PRN (00:21)
[2017-07-03] MEDS: Albuterol/Ipratropium 3.0-0.5 MG/3 ML Neb Soln NEB SCH ×6 (02:46→21:56)
[2017-07-03] MEDS: Piperacillin/Tazobactam 4.5 GM in Sodium Chloride 0.9% 100 ML IV SCH ×3 (05:23→17:47)
[2017-07-03] MEDS: Sodium Chloride 0.9% 1,000 ML IV SCH ×2 (05:28→20:55)
[2017-07-03 06:30] LABS: CHLORIDE,CL 95 mmol/L (98-107); SODIUM,NA 137 mmol/L (136-148)
[2017-07-03] MEDS: Insulin Aspart 100 Units/ML 3 ML Pen SUBCUT SCH ×3 (06:41→17:47)
[2017-07-03] MEDS ORDERED: Potassium Chloride 20 MEQ Tab.ER PO ONE ×2 (06:53→17:19)
[2017-07-03] MEDS ORDERED: Magnesium Sulfate/Water 2 GM in Premix Bag 1 BAG IV ONE (06:53)
[2017-07-03] MEDS ORDERED: Potassium Chloride 40 MEQ in Sodium Chloride 0.9% 480 ML IV ONE (06:53)
[2017-07-03] MEDS ORDERED: POTASSIUM CHLORIDE IV ONE (07:02)
[2017-07-03] MEDS ORDERED: SODIUM CHLORIDE 0.9% IV ONE (07:02)
[2017-07-03] MEDS ORDERED: MAGNESIUM SULFATE IV ONE (07:02)
[2017-07-03] MEDS: buPROPion 150 MG Tab.SR PO SCH ×2 (08:40→20:38)
[2017-07-03] MEDS: amLODIPine 5 MG Tab PO SCH (08:40)
[2017-07-03] MEDS: predniSONE 20 MG Tab PO SCH (08:40)
[2017-07-03] MEDS ORDERED: oxyCODONE 5 MG Tab PO PRN (08:41)
[2017-07-03] MEDS: Lisinopril 10 MG Tab PO SCH (08:41)
[2017-07-03] MEDS ORDERED: Ibuprofen 600 MG Tab PO PRN (08:41)
--- NOTE | 2017-07-03 09:24 | PCM.PN ---
- General Info Date of Service: 07/03/17 Admission Dx/Problem (Free Text): Admission Diagnosis/Problem Admission Diagnosis/Problem Bilateral pneumonia Subjective Update: Sitting up in the chair, feeling a little better today. But continues to be short of breath with a productive cough. No chest pain or abdominal pain. Some loose stools. Functional Status: Reports: Pain Controlled, Tolerating Diet, Ambulating, Urinating - Review of Systems HEENT: Reports: No Symptoms. Denies: Headaches, Visual Changes Pulmonary: Reports: Shortness of Breath, Cough, Sputum. Denies: Hemoptysis Cardiovascular: Reports: No Symptoms. Denies: Chest Pain, Palpitations, Edema Gastrointestinal: Reports: Diarrhea (loose stools). Denies: Abdominal Pain, Nausea, Vomiting Genitourinary: Reports: No Symptoms. Denies: Dysuria, Frequency, Burning Musculoskeletal: Reports: Neck Pain (chronic.) Neurological: Reports: No Symptoms Psychiatric: Reports: No Symptoms - Patient Data Vitals - Most Recent: Last Vital Signs Temp 97.6 F 07/03/17 07:46 Pulse 122 H 07/03/17 07:46 Resp 20 07/03/17 07:46 BP 161/94 H 07/03/17 08:41 Pulse Ox 91 L 07/03/17 07:46 Weight - Most Recent: 72.575 kg I&O - Last 24 Hours: Intake & Output 07/02/17 07/03/17 07/03/17 22:59 06:59 14:59 Intake Total 400 3350 Output Total 1600 Balance 400 1750 Lab Results Last 24 Hours: Laboratory Results - last 24 hr 07/02/17 07/02/17 07/02/17 Range/Units 12:35 12:35 12:35 WBC 28.94 H (4.0-11.0) K/uL RBC 4.24 L (4.50-5.90) M/uL Hgb 15.1 (13.0-17.0) g/dL Hct 43.3 (38.0-50.0) % MCV 102.1 H (80.0-98.0) fL MCH 35.6 H (27.0-32.0) pg MCHC 34.9 (31.0-37.0) g/dL RDW Std Deviation 48.3 (28.0-62.0) fl RDW Coeff of Joseph 13 (11.0-15.0) % Plt Count 225 (150-400) K/uL MPV 9.50 (7.40-12.00) fL Add Manual Diff YES Neutrophils % (Manual) 91 H (48.0-80.0) % Band Neutrophils % % Lymphocytes % (Manual) 4 L (16.0-40.0) % Monocytes % (Manual) 5 (0.0-15.0) % Nucleated RBC % 0.6 /100WBC Absolute Seg Neuts 26.3 H (1.4-5.7) Band Neutrophils # Lymphocytes # (Manual) 1.2 (0.6-2.4) Monocytes # (Manual) 1.4 H (0.0-0.8) Nucleated RBCs # 0 K/uL D-Dimer, Quantitative 2.73 H (0.0-0.52) mg/LFEU Lactate (0.20-2.00) mmol/L Sodium 135 L (136-148) mmol/L Potassium 3.0 L (3.5-5.1) mmol/L Chloride 89 L (98-107) mmol/L Carbon Dioxide 31.4 (21.0-32.0) mmol/L BUN 11 (7.0-18.0) mg/dL Creatinine 0.6 L (0.8-1.3) mg/dL Est Cr Clr Drug Dosing 141.12 mL/min Estimated GFR (MDRD) > 60.0 ml/min Glucose 175 H (74-106) mg/dL POC Glucose (60-110) mg/dL Calcium 8.4 L (8.5-10.1) mg/dL Magnesium (1.5-2.0) mg/dL Total Bilirubin 1.1 H (0.2-1.0) mg/dL AST 55 H (15-37) IU/L ALT 36 (14-63) IU/L Alkaline Phosphatase 188 H (46-116) U/L Troponin I < 0.050 (0.000-0.056) ng/mL B-Natriuretic Peptide (<100) PG/ML Total Protein 6.1 L (6.4-8.2) g/dL Albumin 2.1 L (3.4-5.0) g/dL Globulin 4.0 H (2.0-3.5) g/dL Albumin/Globulin Ratio 0.5 L (1.3-2.8) TSH 3rd Generation (0.36-3.74) uIU/mL Urine Color Urine Appearance Urine pH (5.0-8.0) Ur Specific [place] (1.001-1.035) Urine Protein (NEGATIVE) mg/dL Urine Glucose (UA) (NEGATIVE) mg/dL Urine Ketones (NEGATIVE) mg/dL Urine Occult Blood (NEGATIVE) Urine Nitrite (NEGATIVE) Urine Bilirubin (NEGATIVE) Urine Urobilinogen (<2.0) EU/dL Ur Leukocyte Esterase (NEGATIVE) Urine RBC (0-2/HPF) Urine WBC (0-5/HPF) Ur Epithelial Cells (NONE-FEW) Urine Bacteria (NEGATIVE) Ethyl Alcohol mg/dL 07/02/17 07/02/17 07/02/17 Range/Units 12:35 12:35 12:35 WBC (4.0-11.0) K/uL RBC (4.50-5.90) M/uL Hgb (13.0-17.0) g/dL Hct (38.0-50.0) % MCV (80.0-98.0) fL MCH (27.0-32.0) pg MCHC (31.0-37.0) g/dL RDW Std Deviation (28.0-62.0) fl RDW Coeff of Joseph (11.0-15.0) % Plt Count (150-400) K/uL MPV (7.40-12.00) fL Add Manual Diff Neutrophils % (Manual) (48.0-80.0) % Band Neutrophils % % Lymphocytes % (Manual) (16.0-40.0) % Monocytes % (Manual) (0.0-15.0) % Nucleated RBC % /100WBC Absolute Seg Neuts (1.4-5.7) Band Neutrophils # Lymphocytes # (Manual) (0.6-2.4) Monocytes # (Manual) (0.0-0.8) Nucleated RBCs # K/uL D-Dimer, Quantitative (0.0-0.52) mg/LFEU Lactate 2.2 H (0.20-2.00) mmol/L Sodium (136-148) mmol/L Potassium (3.5-5.1) mmol/L Chloride (98-107) mmol/L Carbon Dioxide (21.0-32.0) mmol/L BUN (7.0-18.0) mg/dL Creatinine (0.8-1.3) mg/dL Est Cr Clr Drug Dosing mL/min Estimated GFR (MDRD) ml/min Glucose (74-106) mg/dL POC Glucose (60-110) mg/dL Calcium (8.5-10.1) mg/dL Magnesium (1.5-2.0) mg/dL Total Bilirubin (0.2-1.0) mg/dL AST (15-37) IU/L ALT (14-63) IU/L Alkaline Phosphatase (46-116) U/L Troponin I (0.000-0.056) ng/mL B-Natriuretic Peptide 42 (<100) PG/ML Total Protein (6.4-8.2) g/dL Albumin (3.4-5.0) g/dL Globulin (2.0-3.5) g/dL Albumin/Globulin Ratio (1.3-2.8) TSH 3rd Generation (0.36-3.74) uIU/mL Urine Color Urine Appearance Urine pH (5.0-8.0) Ur Specific [place] (1.001-1.035) Urine Protein (NEGATIVE) mg/dL Urine Glucose (UA) (NEGATIVE) mg/dL Urine Ketones (NEGATIVE) mg/dL Urine Occult Blood (NEGATIVE) Urine Nitrite (NEGATIVE) Urine Bilirubin (NEGATIVE) Urine Urobilinogen (<2.0) EU/dL Ur Leukocyte Esterase (NEGATIVE) Urine RBC (0-2/HPF) Urine WBC (0-5/HPF) Ur Epithelial Cells (NONE-FEW) Urine Bacteria (NEGATIVE) Ethyl Alcohol 42 mg/dL 07/02/17 07/02/17 07/02/17 Range/Units 15:50 16:00 17:35 WBC (4.0-11.0) K/uL RBC (4.50-5.90) M/uL Hgb (13.0-17.0) g/dL Hct (38.0-50.0) % MCV (80.0-98.0) fL MCH (27.0-32.0) pg MCHC (31.0-37.0) g/dL RDW Std Deviation (28.0-62.0) fl RDW Coeff of Joseph (11.0-15.0) % Plt Count (150-400) K/uL MPV (7.40-12.00) fL Add Manual Diff Neutrophils % (Manual) (48.0-80.0) % Band Neutrophils % % Lymphocytes % (Manual) (16.0-40.0) % Monocytes % (Manual) (0.0-15.0) % Nucleated RBC % /100WBC Absolute Seg Neuts (1.4-5.7) Band Neutrophils # Lymphocytes # (Manual) (0.6-2.4) Monocytes # (Manual) (0.0-0.8) Nucleated RBCs # K/uL D-Dimer, Quantitative (0.0-0.52) mg/LFEU Lactate 1.5 (0.20-2.00) mmol/L Sodium (136-148) mmol/L Potassium (3.5-5.1) mmol/L Chloride (98-107) mmol/L Carbon Dioxide (21.0-32.0) mmol/L BUN (7.0-18.0) mg/dL Creatinine (0.8-1.3) mg/dL Est Cr Clr Drug Dosing mL/min Estimated GFR (MDRD) ml/min Glucose (74-106) mg/dL POC Glucose (60-110) mg/dL Calcium (8.5-10.1) mg/dL Magnesium 1.6 (1.5-2.0) mg/dL Total Bilirubin (0.2-1.0) mg/dL AST (15-37) IU/L ALT (14-63) IU/L Alkaline Phosphatase (46-116) U/L Troponin I (0.000-0.056) ng/mL B-Natriuretic Peptide (<100) PG/ML Total Protein (6.4-8.2) g/dL Albumin (3.4-5.0) g/dL Globulin (2.0-3.5) g/dL Albumin/Globulin Ratio (1.3-2.8) TSH 3rd Generation (0.36-3.74) uIU/mL Urine Color YELLOW Urine Appearance CLEAR Urine pH 6.0 (5.0-8.0) Ur Specific [place] <= 1.005 (1.001-1.035) Urine Protein NEGATIVE (NEGATIVE) mg/dL Urine Glucose (UA) NEGATIVE (NEGATIVE) mg/dL Urine Ketones >=80 (NEGATIVE) mg/dL Urine Occult Blood NEGATIVE (NEGATIVE) Urine Nitrite NEGATIVE (NEGATIVE) Urine Bilirubin NEGATIVE (NEGATIVE) Urine Urobilinogen 0.2 (<2.0) EU/dL Ur Leukocyte Esterase NEGATIVE (NEGATIVE) Urine RBC 0-1 (0-2/HPF) Urine WBC 0-1 (0-5/HPF) Ur Epithelial Cells RARE (NONE-FEW) Urine Bacteria RARE (NEGATIVE) Ethyl Alcohol mg/dL 07/02/17 07/02/17 07/03/17 Range/Units 17:35 18:00 05:00 WBC 20.91 H (4.0-11.0) K/uL RBC 3.81 L (4.50-5.90) M/uL Hgb 13.4 (13.0-17.0) g/dL Hct 38.9 (38.0-50.0) % MCV 102.1 H (80.0-98.0) fL MCH 35.2 H (27.0-32.0) pg MCHC 34.4 (31.0-37.0) g/dL RDW Std Deviation 47.8 (28.0-62.0) fl RDW Coeff of Joseph 13 (11.0-15.0) % Plt Count 182 (150-400) K/uL MPV 9.50 (7.40-12.00) fL Add Manual Diff YES Neutrophils % (Manual) 93 H (48.0-80.0) % Band Neutrophils % 5 % Lymphocytes % (Manual) 1 L (16.0-40.0) % Monocytes % (Manual) 1 (0.0-15.0) % Nucleated RBC % 0.5 /100WBC Absolute Seg Neuts 19.4 H (1.4-5.7) Band Neutrophils # 1.0 Lymphocytes # (Manual) 0.2 L (0.6-2.4) Monocytes # (Manual) 0.2 (0.0-0.8) Nucleated RBCs # 0 K/uL D-Dimer, Quantitative (0.0-0.52) mg/LFEU Lactate (0.20-2.00) mmol/L Sodium (136-148) mmol/L Potassium (3.5-5.1) mmol/L Chloride (98-107) mmol/L Carbon Dioxide (21.0-32.0) mmol/L BUN (7.0-18.0) mg/dL Creatinine (0.8-1.3) mg/dL Est Cr Clr Drug Dosing mL/min Estimated GFR (MDRD) ml/min Glucose (74-106) mg/dL POC Glucose 198 H (60-110) mg/dL Calcium (8.5-10.1) mg/dL Magnesium (1.5-2.0) mg/dL Total Bilirubin (0.2-1.0) mg/dL AST (15-37) IU/L ALT (14-63) IU/L Alkaline Phosphatase (46-116) U/L Troponin I (0.000-0.056) ng/mL B-Natriuretic Peptide (<100) PG/ML Total Protein (6.4-8.2) g/dL Albumin (3.4-5.0) g/dL Globulin (2.0-3.5) g/dL Albumin/Globulin Ratio (1.3-2.8) TSH 3rd Generation 0.62 (0.36-3.74) uIU/mL Urine Color Urine Appearance Urine pH (5.0-8.0) Ur Specific [place] (1.001-1.035) Urine Protein (NEGATIVE) mg/dL Urine Glucose (UA) (NEGATIVE) mg/dL Urine Ketones (NEGATIVE) mg/dL Urine Occult Blood (NEGATIVE) Urine Nitrite (NEGATIVE) Urine Bilirubin (NEGATIVE) Urine Urobilinogen (<2.0) EU/dL Ur Leukocyte Esterase (NEGATIVE) Urine RBC (0-2/HPF) Urine WBC (0-5/HPF) Ur Epithelial Cells (NONE-FEW) Urine Bacteria (NEGATIVE) Ethyl Alcohol mg/dL 07/03/17 07/03/17 Range/Units 05:00 06:09 WBC (4.0-11.0) K/uL RBC (4.50-5.90) M/uL Hgb (13.0-17.0) g/dL Hct (38.0-50.0) % MCV (80.0-98.0) fL MCH (27.0-32.0) pg MCHC (31.0-37.0) g/dL RDW Std Deviation (28.0-62.0) fl RDW Coeff of Joseph (11.0-15.0) % Plt Count (150-400) K/uL MPV (7.40-12.00) fL Add Manual Diff Neutrophils % (Manual) (48.0-80.0) % Band Neutrophils % % Lymphocytes % (Manual) (16.0-40.0) % Monocytes % (Manual) (0.0-15.0) % Nucleated RBC % /100WBC Absolute Seg Neuts (1.4-5.7) Band Neutrophils # Lymphocytes # (Manual) (0.6-2.4) Monocytes # (Manual) (0.0-0.8) Nucleated RBCs # K/uL D-Dimer, Quantitative (0.0-0.52) mg/LFEU Lactate (0.20-2.00) mmol/L Sodium 137 (136-148) mmol/L Potassium 2.3 L* (3.5-5.1) mmol/L Chloride 95 L (98-107) mmol/L Carbon Dioxide 27.1 (21.0-32.0) mmol/L BUN 7 (7.0-18.0) mg/dL Creatinine 0.5 L (0.8-1.3) mg/dL Est Cr Clr Drug Dosing 169.34 mL/min Estimated GFR (MDRD) > 60.0 ml/min Glucose 177 H (74-106) mg/dL POC Glucose 182 H (60-110) mg/dL Calcium 7.8 L (8.5-10.1) mg/dL Magnesium 1.8 (1.5-2.0) mg/dL Total Bilirubin 1.1 H (0.2-1.0) mg/dL AST 74 H (15-37) IU/L ALT 48 (14-63) IU/L Alkaline Phosphatase 202 H (46-116) U/L Troponin I (0.000-0.056) ng/mL B-Natriuretic Peptide (<100) PG/ML Total Protein 5.3 L (6.4-8.2) g/dL Albumin 1.9 L (3.4-5.0) g/dL Globulin 3.4 (2.0-3.5) g/dL Albumin/Globulin Ratio 0.6 L (1.3-2.8) TSH 3rd Generation (0.36-3.74) uIU/mL Urine Color Urine Appearance Urine pH (5.0-8.0) Ur Specific [place] (1.001-1.035) Urine Protein (NEGATIVE) mg/dL Urine Glucose (UA) (NEGATIVE) mg/dL Urine Ketones (NEGATIVE) mg/dL Urine Occult Blood (NEGATIVE) Urine Nitrite (NEGATIVE) Urine Bilirubin (NEGATIVE) Urine Urobilinogen (<2.0) EU/dL Ur Leukocyte Esterase (NEGATIVE) Urine RBC (0-2/HPF) Urine WBC (0-5/HPF) Ur Epithelial Cells (NONE-FEW) Urine Bacteria (NEGATIVE) Ethyl Alcohol mg/dL [facility] Results Last 24 Hours: Microbiology 07/02/17 15:19 Gram Stain - Final Sputum - Expectorated 07/02/17 17:00 Influenza Type A Antigen Screen - Final Nasopharyngeal Swab NEGATIVE INFLUENZA A VIRUS AG Influenza Type B Antigen Screen - Final NEGATIVE INFLUENZA B VIRUS AG Med Orders - Current: Current Medications Acetaminophen (Tylenol) 650 mg PO Q4H PRN PRN Reason: Pain (mild 1-3) Albuterol/Ipratropium (Duoneb 3.0-0.5 Mg/3 Ml) 3 ml NEB Q4HRRT [facility] Last Admin: 07/03/17 05:52 Dose: 3 ml Amlodipine Besylate (Norvasc) 5 mg PO DAILY [facility] Last Admin: 07/03/17 08:40 Dose: 5 mg Bupropion HCl (Wellbutrin Sr) 150 mg PO BID [facility] Last Admin: 07/03/17 08:40 Dose: 150 mg Enoxaparin Sodium (Lovenox) 40 mg SUBCUT Q24H [facility] Last Admin: 07/02/17 16:56 Dose: 40 mg Levofloxacin/Dextrose 750 mg/ (Premix) 150 mls @ 100 mls/hr IV Q24H [facility] Last Admin: 07/02/17 16:55 Dose: 100 mls/hr Piperacillin Sod/Tazobactam (Sod 4.5 gm/ Sodium Chloride) 100 mls @ 100 mls/hr IV Q6H [facility] Last Infusion: 07/03/17 06:25 Dose: Infused Vancomycin HCl 1 gm/ Sodium (Chloride) 250 mls @ 250 mls/hr IV Q8H [facility] Last Infusion: 07/03/17 03:50 Dose: Infused Sodium Chloride (Normal Saline) 1,000 mls @ 150 mls/hr IV ASDIRECTED [facility] Last Admin: 07/03/17 05:28 Dose: 150 mls/hr Potassium Chloride 40 meq/Magnesium Sulfate 2 gm/ Sodium Chloride 1,024 mls @ 150 mls/hr IV ONETIME ONE Stop: 07/03/17 13:51 Last Admin: 07/03/17 07:46 Dose: 150 mls/hr Ibuprofen (Motrin) 800 mg PO Q6H PRN PRN Reason: Pain Insulin Aspart (Novolog) 0 unit SUBCUT TIDAC [facility]; Protocol Last Admin: 07/03/17 06:41 Dose: 1 unit Levothyroxine Sodium (Levothyroxine) 75 mcg PO ACBREAKFAST [facility] Lisinopril (Prinivil) 40 mg PO DAILY [facility] Last Admin: 07/03/17 08:41 Dose: 40 mg Omeprazole (Omeprazole) 20 mg PO ACBREAKFAST [facility] Ondansetron HCl (Zofran) 4 mg IVPUSH Q4H PRN PRN Reason: Nausea Oxycodone HCl (Oxycodone) 10 mg PO Q4H PRN PRN Reason: Pain Prednisone (Prednisone) 20 mg PO WITHBREAKFAST [facility] Last Admin: 07/03/17 08:40 Dose: 20 mg Sodium Chloride (Saline Flush) 10 ml FLUSH ASDIRECTED PRN PRN Reason: Keep Vein Open Sodium Chloride (Saline Flush) 2.5 ml FLUSH ASDIRECTED PRN PRN Reason: Keep Vein Open Vancomycin HCl (Pharmacy To Dose - Vancomycin) 1 dose .XX ASDIRECTED [facility] Discontinued Medications Albuterol/Ipratropium (Duoneb 3.0-0.5 Mg/3 Ml) 3 ml NEB ONETIME ONE Stop: 07/02/17 12:53 Last Admin: 07/02/17 12:58 Dose: 3 ml Albuterol/Ipratropium (Duoneb 3.0-0.5 Mg/3 Ml) Confirm Administered Dose 3 ml .ROUTE .STK-MED ONE Stop: 07/02/17 12:55 Last Admin: 07/02/17 13:11 Dose: Not Given Albuterol/Ipratropium (Duoneb 3.0-0.5 Mg/3 Ml) 3 ml NEB ONETIME ONE Stop: 07/02/17 14:44 Last Admin: 07/02/17 15:01 Dose: 3 ml Lactated Ringer's (Ringers, Lactated) 1,000 mls @ 999 mls/hr IV .BOLUS ONE Stop: 07/02/17 13:38 Last Admin: 07/02/17 12:38 Dose: 999 mls/hr Ceftriaxone Sodium/Dextrose 1 (gm/ Premix) 50 mls @ 100 mls/hr IV ONETIME ONE Stop: 07/02/17 13:42 Last Admin: 07/02/17 13:48 Dose: 100 mls/hr Sodium Chloride (Normal Saline) 1,000 mls @ 125 mls/hr IV ASDIRECTED [facility] Last Admin: 07/02/17 13:44 Dose: 125 mls/hr Sodium Chloride (Normal Saline) 1,000 mls @ 999 mls/hr IV STAT ONE Stop: 07/02/17 17:35 Last Admin: 07/02/17 17:01 Dose: 999 mls/hr Magnesium Sulfate 2 gm/ Premix 50 mls @ 50 mls/hr IV ONETIME ONE Stop: 07/02/17 18:33 Last Infusion: 07/02/17 19:20 Dose: Infused Sodium Chloride (Normal Saline) Confirm Administered Dose 250 mls @ as directed .ROUTE .STK-MED ONE Stop: 07/02/17 20:50 Last Admin: 07/02/17 21:31 Dose: Not Given Potassium Chloride 40 meq/ (Sodium Chloride) 500 mls @ 150 mls/hr IV ONETIME ONE Stop: 07/03/17 10:12 Last Admin: 07/03/17 08:34 Dose: Not Given Potassium Chloride 40 meq/Magnesium Sulfate 2 gm/ Sodium Chloride 504 mls @ 126 mls/hr IV ONETIME ONE Stop: 07/03/17 10:52 Last Admin: 07/03/17 08:35 Dose: Not Given Ibuprofen (Motrin) 600 mg PO Q6H PRN PRN Reason: Pain Last Admin: 07/03/17 00:21 Dose: 600 mg Iopamidol (Isovue Multipack-370 (76%)) 50 ml IVPUSH ONETIME ONE Stop: 07/02/17 16:09 Last Admin: 07/02/17 16:09 Dose: 50 ml Oxycodone HCl (Oxycodone) 5 mg PO Q4H PRN PRN Reason: Pain Potassium Chloride (Klor-Con M20) 40 meq PO ONETIME ONE Stop: 07/02/17 14:54 Last Admin: 07/02/17 15:09 Dose: 40 meq Potassium Chloride (Klor-Con M20) 40 meq PO ONETIME ONE Stop: 07/03/17 06:54 Last Admin: 07/03/17 07:46 Dose: 40 meq - Exam General: Alert, Oriented, Cooperative, No Acute Distress Neck: Supple Lungs: Crackles (RUL and bilateral basis). No: Normal Respiratory Effort ( dyspnea) Cardiovascular: Regular Rhythm, Tachycardia GI/Abdominal Exam: Normal Bowel Sounds, Soft, Non-Tender, No Distention, No Abnormal Bruit, No Mass, Pelvis Stable, Hepatomegaly Extremities: Normal Inspection, Normal Range of Motion, Non-Tender, No Pedal Edema, Normal Capillary Refill Neurological: No New Focal Deficit Psy/Mental Status: Alert, Normal Affect, Normal Mood - Problem List & Annotations (1) Acute respiratory failure with hypoxemia SNOMED Code(s): 509536768 Code(s): J96.01 - ACUTE RESPIRATORY FAILURE WITH HYPOXIA Status: Acute Current Visit: Yes (2) Bilateral pneumonia SNOMED Code(s): 616358104 Code(s): J18.9 - PNEUMONIA, UNSPECIFIED ORGANISM Status: Acute Current Visit: Yes Qualifiers: Pneumonia type: due to unspecified organism Lung location: lower lobe of lung Qualified Code(s): J18.1 - Lobar pneumonia, unspecified organism (3) Gram-negative infection SNOMED Code(s): 744245327 Code(s): A49.9 - BACTERIAL INFECTION, UNSPECIFIED Status: Suspected Current Visit: Yes (4) Sepsis SNOMED Code(s): 31139470 Code(s): A41.9 - SEPSIS, UNSPECIFIED ORGANISM Status: Acute Current Visit : Yes (5) Malignant melanoma, metastatic SNOMED Code(s): 840802570 Code(s): C79.9 - SECONDARY MALIGNANT NEOPLASM OF UNSPECIFIED SITE Status: Chronic Current Visit: Yes (6) HTN (hypertension) SNOMED Code(s): 78209184 Code(s): I10 - ESSENTIAL (PRIMARY) HYPERTENSION Status: Chronic Current Visit: Yes Qualifiers: Hypertension type: essential hypertension Qualified Code(s): I10 - Essential (primary) hypertension (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 SNOMED Code(s): 102320155 Code(s): T38.0X1A - POISONING BY GLUCOCORT/SYNTH ANALOG, ACCIDENTAL, INIT; D84.8 - OTHER SPECIFIED IMMUNODEFICIENCIES Status: Chronic Current Visit: Yes (8) Hypothyroidism SNOMED Code(s): 65515009 Code(s): E03.9 - HYPOTHYROIDISM, UNSPECIFIED Status: Chronic Current Visit: Yes Qualifiers: Hypothyroidism type: acquired Qualified Code(s): E03.9 - Hypothyroidism, unspecified (9) DM type 2 (diabetes mellitus, type 2) SNOMED Code(s): 91657574 Code(s): E11.9 - TYPE 2 DIABETES MELLITUS WITHOUT COMPLICATIONS Status: Chronic Current Visit: Yes Qualifiers: Diabetes mellitus alf insulin use: with long term care social worker use Diabetes mellitus complication status: without complication Qualified Code(s): E11.9 - Type 2 diabetes mellitus without complications; Z79.4 - director long term care (current) use of insulin - Problem List Review Problem List Initiated/Reviewed/Updated: Yes - My Orders Last 24 Hours: My Active Orders 07/02/17 15:19 CULTURE SPUTUM + SMEAR [RM] Stat 07/02/17 15:34 Ambulate [RC] ASDIRECTED Intake and Output [RC] Q12HR Oxygen Therapy [RC] PRN Vital Signs [RC] Q4H Acetaminophen [Tylenol] 650 mg PO Q4H PRN Ondansetron [Zofran] 4 mg IVPUSH Q4H PRN Resuscitation Status Routine 07/02/17 15:37 RT Aerosol Therapy [RC] ASDIRECTED 07/02/17 15:44 Overnight Pulse Oximetry [RC] Click to Edit Pulse Oximetry Continuous Monitoring [OM.PC] Routine 07/02/17 15:45 Telemetry Monitoring [Cardiac Monitoring] [RC] Q8H Enoxaparin [Lovenox] 40 mg SUBCUT Q24H Levofloxacin/Dextrose 5%-Water [Levaquin in D5W 750 MG/150 ML] 750 mg Premix Bag 1 bag IV Q24H Vancomycin Pharmacy to Dose [Pharmacy to Dose - Vancomycin] 1 dose .XX ASDIRECTED 07/02/17 16:00 UA W/MICROSCOPIC [URIN] Stat 07/02/17 16:45 Sodium Chloride 0.9% [Normal Saline] 1,000 ml IV ASDIRECTED 07/02/17 17:00 INFLUENZA A+B AG SCREEN [RM] Routine 07/02/17 17:24 Insulin Aspart [NovoLOG] See Protocol SUBCUT TIDAC 07/02/17 17:25 Blood Glucose Check, Bedside [RC] TIDAC 07/02/17 18:00 Albuterol/Ipratropium [DuoNeb 3.0-0.5 MG/3 ML] 3 ml NEB Q4HRRT Piperacillin/Tazobactam [Piperacil-Tazobact] 4.5 gm Sodium Chloride 0.9% [ Normal Saline] 100 ml IV Q6H 07/02/17 Dinner Regular Diet [DIET] 07/03/17 08:12 predniSONE 20 mg PO WITHBREAKFAST 07/03/17 08:41 Ibuprofen [Motrin] 800 mg PO Q6H PRN oxyCODONE 10 mg PO Q4H PRN 07/03/17 09:00 Lisinopril [Prinivil] 40 mg PO DAILY amLODIPine [Norvasc] 5 mg PO DAILY buPROPion [Wellbutrin SR] 150 mg PO BID 07/03/17 12:30 BMP [BASIC METABOLIC PANEL,BMP] [CHEM] Routine 07/04/17 05:11 CBC WITH AUTO DIFF [HEME] AM COMPREHENSIVE METABOLIC PN,CMP [CHEM] AM MAGNESIUM [CHEM] AM 07/04/17 07:30 Levothyroxine 75 mcg PO ACBREAKFAST Omeprazole 20 mg PO ACBREAKFAST 07/05/17 05:11 CBC WITH AUTO DIFF [HEME] AM COMPREHENSIVE METABOLIC PN,CMP [CHEM] AM MAGNESIUM [CHEM] AM 07/06/17 05:11 CBC WITH AUTO DIFF [HEME] AM COMPREHENSIVE METABOLIC PN,CMP [CHEM] AM MAGNESIUM [CHEM] AM - Plan Plan:: This 56 flor old male admitted with acute hypoxic respiratory failure, sepsis and severe community acquired pneumonia 1. Sepsis: Sepsis resolved. Lactate normalized. Continue to treate for possible gram negative infection due to immunocompromised state with Levaquin, Zosyn and Vancomycin. Continue IVFs. BC pending, Sputum gram stain reveals few epithelial cells, abundant gram positive cocci in pain and clusters and abundant gram negative rods, GEOVANY pending and UA negative . Oxygen for acute hypoxic respiratory failure, continuous pulse oximetry. Requiring 8 L HF NC at this time, to keep sats 88-92%. CT angio obtained of chest, which revealed patchy ground glass opacity bilaterally, most notable to right upper lobe, no Pulmonary Embolism identified, left axillary lymphadenopathy and no pulmonary emphysema. Influenza swab negative. 2. Tachycardia: Continues but slowly improving. Worsens with activity and with decrease in O2 saturations Likely secondary to above, IVF resuscitation and monitor on telemetry. Tobacco abuse, will not use nicotine replacement at this time due to tachycardia. patient is aware and understands. 3. Hypokalemia/Hypomagnesemia: Potassium 2.3 this am, KCL 40 meq IV and 40 meq PO given, will recheck this afternoon and supplement as needed. Mag 1.9, replace with 2 gm IV today. 4. HTN: Slightly elevated, 160/80s, will restart Lisinopril and Amlodipine. Monitor. 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 will check BS TIDAC and use SSI due to severe infection. 6. Hypothyroid: Stable, continue Levothyroxine. 7. Metastatic melanoma: Has been stable, per patient reports two most recent PET scans have been stable. Continue Prednisone 20 mg daily 8. Neck pain: Stable. Continue Motrin and Oxycodone. Reports he takes 20 mg immediate release daily. Explained to him with his respiratory status that is very unsafe, will increase oxycodone to 10 mg and Motrin to 800 Q6hr. He is agreeable to this. VTE prophylaxis: Lovenox. Dispo: 3-4 days pending improvement.
[2017-07-03] MEDS: Ibuprofen 800 MG Tab PO PRN ×2 (10:15→20:54)
[2017-07-03 13:21] LABS: CHLORIDE,CL 96 mmol/L (98-107); SODIUM,NA 136 mmol/L (136-148)
[2017-07-03] MEDS: Enoxaparin 40 MG/0.4 ML Syringe SUBCUT SCH (15:37)
[2017-07-03] MEDS: Levofloxacin/Dextrose 5%-Water 750 MG in Premix Bag 1 BAG IV SCH (15:37)
[2017-07-03] MEDS ORDERED: TRESIBA SUBCUT SCH (21:00)
[2017-07-04] MEDS: Piperacillin/Tazobactam 4.5 GM in Sodium Chloride 0.9% 100 ML IV SCH ×5 (00:47→23:25)
[2017-07-04] MEDS: Albuterol/Ipratropium 3.0-0.5 MG/3 ML Neb Soln NEB SCH ×6 (01:09→21:01)
[2017-07-04 02:06] LABS: SODIUM,NA 138 mmol/L (136-148)
[2017-07-04 02:21] LABS: CHLORIDE,CL 100 mmol/L (98-107)
[2017-07-04] MEDS: Insulin Aspart 100 Units/ML 3 ML Pen SUBCUT SCH ×3 (06:46→17:33)
[2017-07-04] MEDS: Omeprazole 20 MG Cap.CR PO SCH (06:48)
[2017-07-04] MEDS: Levothyroxine 75 MCG Tab PO SCH (06:48)
[2017-07-04] MEDS: Sodium Chloride 0.9% 1,000 ML IV SCH (07:01)
[2017-07-04] MEDS: predniSONE 20 MG Tab PO SCH (07:52)
[2017-07-04] MEDS: Lisinopril 10 MG Tab PO SCH ×2 (07:52→08:09)
[2017-07-04] MEDS: amLODIPine 5 MG Tab PO SCH ×2 (07:53→08:08)
[2017-07-04] MEDS: buPROPion 150 MG Tab.SR PO SCH ×3 (07:53→21:26)
[2017-07-04] MEDS: TRESIBA SUBCUT SCH (08:13)
[2017-07-04] MEDS ORDERED: Magnesium Sulfate 4 GM in Sodium Chloride 0.9% with KCl 1,000 ML IV SCH (08:15)
[2017-07-04] MEDS ORDERED: SODIUM CHLORIDE 0.9% IV SCH (08:30)
[2017-07-04] MEDS ORDERED: POTASSIUM CHLORIDE IV SCH (08:30)
[2017-07-04] MEDS ORDERED: MAGNESIUM SULFATE IV SCH (08:30)
[2017-07-04] MEDS: Ibuprofen 800 MG Tab PO PRN ×3 (08:38→23:37)
[2017-07-04] MEDS: Potassium Chloride 20 MEQ Tab.ER PO SCH ×2 (08:39→21:26)
--- NOTE | 2017-07-04 09:24 | PCM.PN ---
- General Info Date of Service: 07/04/17 Admission Dx/Problem (Free Text): Admission Diagnosis/Problem Admission Diagnosis/Problem Bilateral pneumonia Subjective Update: Sleeping this morning. Reports breathing is better, cough continues but is no longer productive. No chest pain. SOB has improved. Has some edema to ankles. Functional Status: Reports: Pain Controlled, Tolerating Diet, Ambulating, Urinating - Review of Systems HEENT: Reports: No Symptoms. Denies: Headaches, Sore Throat, Visual Changes Pulmonary: Reports: Shortness of Breath, Cough. Denies: Sputum, Hemoptysis Cardiovascular: Reports: Edema. Denies: Chest Pain Gastrointestinal: Reports: No Symptoms. Denies: Abdominal Pain, Diarrhea, Flatus, Nausea, Vomiting Genitourinary: Reports: No Symptoms. Denies: Dysuria, Frequency, Burning Musculoskeletal: Reports: Neck Pain (chronic) Skin: Reports: No Symptoms Neurological: Reports: No Symptoms Psychiatric: Reports: No Symptoms - Patient Data Vitals - Most Recent: Last Vital Signs Temp 96.3 F 07/04/17 08:00 Pulse 110 H 07/04/17 08:00 Resp 22 H 07/04/17 08:00 BP 154/93 H 07/04/17 08:00 Pulse Ox 94 L 07/04/17 04:14 Weight - Most Recent: 72.575 kg I&O - Last 24 Hours: Intake & Output 07/03/17 07/04/17 07/04/17 22:59 06:59 14:59 Intake Total 1493 876 9292 Output Total 500 Balance 3483 008 2139 Lab Results Last 24 Hours: Laboratory Results - last 24 hr 07/03/17 07/03/17 07/03/17 Range/Units 11:35 12:50 15:48 WBC (4.0-11.0) K/uL RBC (4.50-5.90) M/uL Hgb (13.0-17.0) g/dL Hct (38.0-50.0) % MCV (80.0-98.0) fL MCH (27.0-32.0) pg MCHC (31.0-37.0) g/dL RDW Std Deviation (28.0-62.0) fl RDW Coeff of Joseph (11.0-15.0) % Plt Count (150-400) K/uL MPV (7.40-12.00) fL Add Manual Diff Neutrophils % (Manual) (48.0-80.0) % Lymphocytes % (Manual) (16.0-40.0) % Monocytes % (Manual) (0.0-15.0) % Nucleated RBC % /100WBC Absolute Seg Neuts (1.4-5.7) Lymphocytes # (Manual) (0.6-2.4) Monocytes # (Manual) (0.0-0.8) Nucleated RBCs # K/uL Sodium 136 (136-148) mmol/L Potassium 3.3 L (3.5-5.1) mmol/L Chloride 96 L (98-107) mmol/L Carbon Dioxide 30.2 (21.0-32.0) mmol/L BUN 4 L (7.0-18.0) mg/dL Creatinine 0.6 L (0.8-1.3) mg/dL Est Cr Clr Drug Dosing 141.12 mL/min Estimated GFR (MDRD) > 60.0 ml/min Glucose 232 H (74-106) mg/dL POC Glucose 263 H 238 H (60-110) mg/dL Calcium 7.6 L (8.5-10.1) mg/dL Magnesium (1.5-2.0) mg/dL Total Bilirubin (0.2-1.0) mg/dL AST (15-37) IU/L ALT (14-63) IU/L Alkaline Phosphatase (46-116) U/L Total Protein (6.4-8.2) g/dL Albumin (3.4-5.0) g/dL Globulin (2.0-3.5) g/dL Albumin/Globulin Ratio (1.3-2.8) Vancomycin Trough (5.0-10.0) ug/mL 07/04/17 07/04/17 07/04/17 Range/Units 01:42 01:42 01:42 WBC 17.51 H (4.0-11.0) K/uL RBC 3.81 L (4.50-5.90) M/uL Hgb 13.4 (13.0-17.0) g/dL Hct 38.8 (38.0-50.0) % MCV 101.8 H (80.0-98.0) fL MCH 35.2 H (27.0-32.0) pg MCHC 34.5 (31.0-37.0) g/dL RDW Std Deviation 47.9 (28.0-62.0) fl RDW Coeff of Joseph 13 (11.0-15.0) % Plt Count 163 (150-400) K/uL MPV 9.60 (7.40-12.00) fL Add Manual Diff YES Neutrophils % (Manual) 95 H (48.0-80.0) % Lymphocytes % (Manual) 2 L (16.0-40.0) % Monocytes % (Manual) 3 (0.0-15.0) % Nucleated RBC % 0.2 /100WBC Absolute Seg Neuts 16.6 H (1.4-5.7) Lymphocytes # (Manual) 0.4 L (0.6-2.4) Monocytes # (Manual) 0.5 (0.0-0.8) Nucleated RBCs # 0 K/uL Sodium 138 (136-148) mmol/L Potassium 2.9 L (3.5-5.1) mmol/L Chloride 100 (98-107) mmol/L Carbon Dioxide 30.8 (21.0-32.0) mmol/L BUN 4 L (7.0-18.0) mg/dL Creatinine 0.5 L (0.8-1.3) mg/dL Est Cr Clr Drug Dosing 169.34 mL/min Estimated GFR (MDRD) > 60.0 ml/min Glucose 128 H (74-106) mg/dL POC Glucose (60-110) mg/dL Calcium 7.4 L (8.5-10.1) mg/dL Magnesium 1.5 (1.5-2.0) mg/dL Total Bilirubin 1.0 (0.2-1.0) mg/dL AST 126 H (15-37) IU/L ALT 94 H (14-63) IU/L Alkaline Phosphatase 194 H (46-116) U/L Total Protein 5.3 L (6.4-8.2) g/dL Albumin 1.9 L (3.4-5.0) g/dL Globulin 3.4 (2.0-3.5) g/dL Albumin/Globulin Ratio 0.6 L (1.3-2.8) Vancomycin Trough 11.1 H (5.0-10.0) ug/mL Geovany Results Last 24 Hours: Microbiology 07/02/17 15:19 Gram Stain - Final Sputum - Expectorated Sputum Culture - Final Normal Respiratory Astrid 07/02/17 13:25 Aerobic Blood Culture - Preliminary Blood - Venous - Lab Draw NO GROWTH AFTER 1 DAY Anaerobic Blood Culture - Preliminary NO GROWTH AFTER 1 DAY 07/02/17 13:15 Aerobic Blood Culture - Preliminary Blood - Venous NO GROWTH AFTER 1 DAY Anaerobic Blood Culture - Preliminary NO GROWTH AFTER 1 DAY Med Orders - Current: Current Medications Acetaminophen (Tylenol) 650 mg PO Q4H PRN PRN Reason: Pain (mild 1-3) Albuterol/Ipratropium (Duoneb 3.0-0.5 Mg/3 Ml) 3 ml NEB Q4HRRT COUNTS INCLUDE 234 BEDS AT THE [facility] Last Admin: 07/04/17 06:09 Dose: 3 ml Amlodipine Besylate (Norvasc) 5 mg PO DAILY COUNTS INCLUDE 234 BEDS AT THE [facility] Last Admin: 07/04/17 08:08 Dose: Not Given Bupropion HCl (Wellbutrin Sr) 150 mg PO BID COUNTS INCLUDE 234 BEDS AT THE [facility] Last Admin: 07/04/17 08:09 Dose: Not Given Enoxaparin Sodium (Lovenox) 40 mg SUBCUT Q24H COUNTS INCLUDE 234 BEDS AT THE [facility] Last Admin: 07/03/17 15:37 Dose: 40 mg Levofloxacin/Dextrose 750 mg/ (Premix) 150 mls @ 100 mls/hr IV Q24H COUNTS INCLUDE 234 BEDS AT THE [facility] Last Admin: 07/03/17 15:37 Dose: 100 mls/hr Piperacillin Sod/Tazobactam (Sod 4.5 gm/ Sodium Chloride) 100 mls @ 100 mls/hr IV Q6H COUNTS INCLUDE 234 BEDS AT THE [facility] Last Admin: 07/04/17 05:49 Dose: 100 mls/hr Vancomycin HCl 1 gm/ Sodium (Chloride) 250 mls @ 250 mls/hr IV Q8H COUNTS INCLUDE 234 BEDS AT THE [facility] Last Admin: 07/04/17 02:50 Dose: 250 mls/hr Magnesium Sulfate 4 gm/Potassium Chloride 40 meq/Sodium Chloride 1,028 mls @ 150 mls/hr IV ASDIRECTED COUNTS INCLUDE 234 BEDS AT THE [facility] Stop: 07/04/17 15:22 Ibuprofen (Motrin) 800 mg PO Q6H PRN PRN Reason: Pain Last Admin: 07/04/17 08:38 Dose: 800 mg Insulin Aspart (Novolog) 0 unit SUBCUT TIDAC COUNTS INCLUDE 234 BEDS AT THE [facility]; Protocol Last Admin: 07/04/17 06:46 Dose: Not Given Levothyroxine Sodium (Levothyroxine) 75 mcg PO ACBREAKFAST COUNTS INCLUDE 234 BEDS AT THE [facility] Last Admin: 07/04/17 06:48 Dose: 75 mcg Lisinopril (Prinivil) 40 mg PO DAILY COUNTS INCLUDE 234 BEDS AT THE [facility] Last Admin: 07/04/17 08:09 Dose: Not Given Omeprazole (Omeprazole) 20 mg PO ACBREAKFAST COUNTS INCLUDE 234 BEDS AT THE [facility] Last Admin: 07/04/17 06:48 Dose: 20 mg Ondansetron HCl (Zofran) 4 mg IVPUSH Q4H PRN PRN Reason: Nausea Oxycodone HCl (Oxycodone) 10 mg PO Q4H PRN PRN Reason: Pain Tresiba 1 each SUBCUT DAILY COUNTS INCLUDE 234 BEDS AT THE [facility] Last Admin: 07/04/17 08:13 Dose: 1 each Potassium Chloride (Klor-Con M20) 40 meq PO BID COUNTS INCLUDE 234 BEDS AT THE [facility] Last Admin: 07/04/17 08:39 Dose: 40 meq Prednisone (Prednisone) 20 mg PO WITHBREAKFAST COUNTS INCLUDE 234 BEDS AT THE [facility] Last Admin: 07/04/17 07:52 Dose: 20 mg Sodium Chloride (Saline Flush) 10 ml FLUSH ASDIRECTED PRN PRN Reason: Keep Vein Open Sodium Chloride (Saline Flush) 2.5 ml FLUSH ASDIRECTED PRN PRN Reason: Keep Vein Open Vancomycin HCl (Pharmacy To Dose - Vancomycin) 1 dose .XX ASDIRECTED COUNTS INCLUDE 234 BEDS AT THE [facility] Discontinued Medications Albuterol/Ipratropium (Duoneb 3.0-0.5 Mg/3 Ml) 3 ml NEB ONETIME ONE Stop: 07/02/17 12:53 Last Admin: 07/02/17 12:58 Dose: 3 ml Albuterol/Ipratropium (Duoneb 3.0-0.5 Mg/3 Ml) Confirm Administered Dose 3 ml .ROUTE .STK-MED ONE Stop: 07/02/17 12:55 Last Admin: 07/02/17 13:11 Dose: Not Given Albuterol/Ipratropium (Duoneb 3.0-0.5 Mg/3 Ml) 3 ml NEB ONETIME ONE Stop: 07/02/17 14:44 Last Admin: 07/02/17 15:01 Dose: 3 ml Lactated Ringer's (Ringers, Lactated) 1,000 mls @ 999 mls/hr IV .BOLUS ONE Stop: 07/02/17 13:38 Last Admin: 07/02/17 12:38 Dose: 999 mls/hr Ceftriaxone Sodium/Dextrose 1 (gm/ Premix) 50 mls @ 100 mls/hr IV ONETIME ONE Stop: 07/02/17 13:42 Last Admin: 07/02/17 13:48 Dose: 100 mls/hr Sodium Chloride (Normal Saline) 1,000 mls @ 125 mls/hr IV ASDIRECTED COUNTS INCLUDE 234 BEDS AT THE [facility] Last Admin: 07/02/17 13:44 Dose: 125 mls/hr Sodium Chloride (Normal Saline) 1,000 mls @ 999 mls/hr IV STAT ONE Stop: 07/02/17 17:35 Last Admin: 07/02/17 17:01 Dose: 999 mls/hr Sodium Chloride (Normal Saline) 1,000 mls @ 150 mls/hr IV ASDIRECTED COUNTS INCLUDE 234 BEDS AT THE [facility] Last Admin: 07/04/17 07:01 Dose: 150 mls/hr Magnesium Sulfate 2 gm/ Premix 50 mls @ 50 mls/hr IV ONETIME ONE Stop: 07/02/17 18:33 Last Infusion: 07/02/17 19:20 Dose: Infused Sodium Chloride (Normal Saline) Confirm Administered Dose 250 mls @ as directed .ROUTE .STK-MED ONE Stop: 07/02/17 20:50 Last Admin: 07/02/17 21:31 Dose: Not Given Potassium Chloride 40 meq/ (Sodium Chloride) 500 mls @ 150 mls/hr IV ONETIME ONE Stop: 07/03/17 10:12 Last Admin: 07/03/17 08:34 Dose: Not Given Potassium Chloride 40 meq/Magnesium Sulfate 2 gm/ Sodium Chloride 504 mls @ 126 mls/hr IV ONETIME ONE Stop: 07/03/17 10:52 Last Admin: 07/03/17 08:35 Dose: Not Given Potassium Chloride 40 meq/Magnesium Sulfate 2 gm/ Sodium Chloride 1,024 mls @ 150 mls/hr IV ONETIME ONE Stop: 07/03/17 13:51 Last Admin: 07/03/17 07:46 Dose: 150 mls/hr Ibuprofen (Motrin) 600 mg PO Q6H PRN PRN Reason: Pain Last Admin: 07/03/17 00:21 Dose: 600 mg Ibuprofen (Motrin) 800 mg PO Q6H PRN PRN Reason: Pain Iopamidol (Isovue Multipack-370 (76%)) 50 ml IVPUSH ONETIME ONE Stop: 07/02/17 16:09 Last Admin: 07/02/17 16:09 Dose: 50 ml Oxycodone HCl (Oxycodone) 5 mg PO Q4H PRN PRN Reason: Pain Tresiba 1 each SUBCUT BEDTIME [place] Potassium Chloride (Klor-Con M20) 40 meq PO ONETIME ONE Stop: 07/02/17 14:54 Last Admin: 07/02/17 15:09 Dose: 40 meq Potassium Chloride (Klor-Con M20) 40 meq PO ONETIME ONE Stop: 07/03/17 06:54 Last Admin: 07/03/17 07:46 Dose: 40 meq Potassium Chloride (Klor-Con M20) 40 meq PO ONETIME ONE Stop: 07/03/17 17:20 Last Admin: 07/03/17 17:47 Dose: 40 meq - Exam General: Alert, Oriented, Cooperative, No Acute Distress Neck: Supple Lungs: Crackles (mainly heard anteriorly). No: Wheezing Cardiovascular: Regular Rate, Regular Rhythm GI/Abdominal Exam: Normal Bowel Sounds, Soft, Non-Tender, No Organomegaly, No Distention, No Abnormal Bruit, No Mass, Pelvis Stable Back Exam: Normal Inspection, Full Range of Motion Extremities: Normal Range of Motion, Non-Tender, Pedal Edema (+2 pitting ) Neurological: No New Focal Deficit Psy/Mental Status: Alert, Normal Affect, Normal Mood - Problem List & Annotations (1) Acute respiratory failure with hypoxemia SNOMED Code(s): 810567883 Code(s): J96.01 - ACUTE RESPIRATORY FAILURE WITH HYPOXIA Status: Acute Current Visit: Yes (2) Bilateral pneumonia SNOMED Code(s): 466056842 Code(s): J18.9 - PNEUMONIA, UNSPECIFIED ORGANISM Status: Acute Current Visit: Yes Qualifiers: Pneumonia type: due to unspecified organism Lung location: lower lobe of lung Qualified Code(s): J18.1 - Lobar pneumonia, unspecified organism (3) Gram-negative infection SNOMED Code(s): 123058954 Code(s): A49.9 - BACTERIAL INFECTION, UNSPECIFIED Status: Suspected Current Visit: Yes (4) Sepsis SNOMED Code(s): 84383395 Code(s): A41.9 - SEPSIS, UNSPECIFIED ORGANISM Status: Acute Current Visit : Yes (5) Malignant melanoma, metastatic SNOMED Code(s): 148500366 Code(s): C79.9 - SECONDARY MALIGNANT NEOPLASM OF UNSPECIFIED SITE Status: Chronic Current Visit: Yes (6) HTN (hypertension) SNOMED Code(s): 46011550 Code(s): I10 - ESSENTIAL (PRIMARY) HYPERTENSION Status: Chronic Current Visit: Yes Qualifiers: Hypertension type: essential hypertension Qualified Code(s): I10 - Essential (primary) hypertension (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 SNOMED Code(s): 609573663 Code(s): T38.0X1A - POISONING BY GLUCOCORT/SYNTH ANALOG, ACCIDENTAL, INIT; D84.8 - OTHER SPECIFIED IMMUNODEFICIENCIES Status: Chronic Current Visit: Yes (8) Hypothyroidism SNOMED Code(s): 00254463 Code(s): E03.9 - HYPOTHYROIDISM, UNSPECIFIED Status: Chronic Current Visit: Yes Qualifiers: Hypothyroidism type: acquired Qualified Code(s): E03.9 - Hypothyroidism, unspecified (9) DM type 2 (diabetes mellitus, type 2) SNOMED Code(s): 04876854 Code(s): E11.9 - TYPE 2 DIABETES MELLITUS WITHOUT COMPLICATIONS Status: Chronic Current Visit: Yes Qualifiers: Diabetes mellitus nursing home insulin 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 Diabetes mellitus complication status: without complication Qualified Code(s): E11.9 - Type 2 diabetes mellitus without complications; Z79.4 - residential (current) use of insulin - Problem List Review Problem List Initiated/Reviewed/Updated: Yes - My Orders Last 24 Hours: My Active Orders 07/03/17 08:41 oxyCODONE 10 mg PO Q4H PRN 07/03/17 09:00 Lisinopril [Prinivil] 40 mg PO DAILY amLODIPine [Norvasc] 5 mg PO DAILY buPROPion [Wellbutrin SR] 150 mg PO BID 07/03/17 10:12 Ibuprofen [Motrin] 800 mg PO Q6H PRN 07/04/17 07:30 Levothyroxine 75 mcg PO ACBREAKFAST Omeprazole 20 mg PO ACBREAKFAST 07/04/17 08:30 Magnesium Sulfate [Magnesium Sulfate 50%] 4 gm Potassium Chloride 40 meq Sodium Chloride 0.9% [Normal Saline] 1,000 ml IV ASDIRECTED 07/04/17 09:00 Patient's Own Medication [Ptom] 1 each SUBCUT DAILY Potassium Chloride [Klor-Con M20] 40 meq PO BID 07/05/17 05:11 CBC WITH AUTO DIFF [HEME] AM COMPREHENSIVE METABOLIC PN,CMP [CHEM] AM MAGNESIUM [CHEM] AM 07/06/17 05:11 CBC WITH AUTO DIFF [HEME] AM COMPREHENSIVE METABOLIC PN,CMP [CHEM] AM MAGNESIUM [CHEM] AM - Plan Plan:: This 56 flor old male admitted with acute hypoxic respiratory failure, sepsis and severe community acquired pneumonia 1. Pneumonia: Continue to treat for possible gram negative infection due to immunocompromised state with Levaquin, Zosyn. Sputum returned with normal respiratory astrid and BC negative will discontinue Vancomycin. Stop IVFs. Continues to be weaned from oxygen, but still requiring 6 L HF NC at this time, to keep sats 88-92%. 2. Tachycardia: Improving. Low 100-110. Worsens with activity and with decrease in O2 saturations Monitor on telemetry. Tobacco abuse, will not use nicotine replacement at this time due to tachycardia. patient is aware and understands. 3. Hypokalemia/Hypomagnesemia: Potassium 2.9 this am, KCL 40 meq IV and 40 meq PO given, will recheck this afternoon and supplement as needed. Mag 1.5, replace with 4 gm IV today. 4. HTN: Stable. Continue Lisinopril and Amlodipine. Monitor. 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 will check BS TIDAC and use SSI due to severe infection. 6. Hypothyroid: Stable, continue Levothyroxine. 7. Metastatic melanoma: Has been stable, per patient reports two most recent PET scans have been stable. Continue Prednisone 20 mg daily 8. Neck pain: Stable. Continue Motrin and Oxycodone. Reports he takes 20 mg immediate release daily. Explained to him with his respiratory status that is very unsafe, will increase oxycodone to 10 mg and Motrin to 800 Q6hr. He is agreeable to this. VTE prophylaxis: Lovenox. Dispo: 3-4 days pending improvement.
[2017-07-04] MEDS: Levofloxacin/Dextrose 5%-Water 750 MG in Premix Bag 1 BAG IV SCH (16:23)
[2017-07-04] MEDS: Enoxaparin 40 MG/0.4 ML Syringe SUBCUT SCH (16:23)
[2017-07-04] MEDS ORDERED: Loperamide 2 MG Cap PO PRN (19:40)
[2017-07-05] MEDS: Albuterol/Ipratropium 3.0-0.5 MG/3 ML Neb Soln NEB SCH ×6 (01:19→21:15)
[2017-07-05] MEDS: Piperacillin/Tazobactam 4.5 GM in Sodium Chloride 0.9% 100 ML IV SCH ×2 (06:23→11:40)
[2017-07-05] MEDS: Insulin Aspart 100 Units/ML 3 ML Pen SUBCUT SCH ×3 (06:30→17:52)
[2017-07-05] MEDS: Levothyroxine 75 MCG Tab PO SCH (06:30)
[2017-07-05] MEDS: Omeprazole 20 MG Cap.CR PO SCH (06:30)
[2017-07-05 07:07] LABS: CHLORIDE,CL 99 mmol/L (98-107); SODIUM,NA 136 mmol/L (136-148)
[2017-07-05] MEDS: Potassium Chloride 20 MEQ Tab.ER PO SCH ×2 (08:30→21:36)
[2017-07-05] MEDS: Lisinopril 10 MG Tab PO SCH (08:31)
[2017-07-05] MEDS: buPROPion 150 MG Tab.SR PO SCH ×2 (08:33→21:36)
[2017-07-05] MEDS: predniSONE 20 MG Tab PO SCH (08:33)
[2017-07-05] MEDS: amLODIPine 5 MG Tab PO SCH (08:34)
[2017-07-05] MEDS: TRESIBA SUBCUT SCH (08:35)
[2017-07-05] MEDS: Ibuprofen 800 MG Tab PO PRN ×2 (15:09→23:30)
[2017-07-05] MEDS: Levofloxacin/Dextrose 5%-Water 750 MG in Premix Bag 1 BAG IV SCH (15:10)
[2017-07-05] MEDS: Enoxaparin 40 MG/0.4 ML Syringe SUBCUT SCH (15:10)
[2017-07-05] MEDS ORDERED: Potassium Chloride 20 MEQ Tab.ER PO ONE (15:12)
--- NOTE | 2017-07-05 15:15 | PCM.PN ---
- Review of Systems Systems Review Comment:: feeling better, breathing has improved - Patient Data Vitals - Most Recent: Last Vital Signs Temp 36.6 C 07/05/17 12:00 Pulse 101 H 07/05/17 12:00 Resp 24 H 07/05/17 12:00 BP 152/94 H 07/05/17 12:00 Pulse Ox 96 07/05/17 12:00 Weight - Most Recent: 72.575 kg I&O - Last 24 Hours: Intake & Output 07/05/17 07/05/17 07/05/17 06:59 14:59 22:59 Intake Total 250 Balance 250 Lab Results Last 24 Hours: Laboratory Results - last 24 hr 07/05/17 07/05/17 Range/Units 06:13 06:13 WBC 14.75 H (4.0-11.0) K/uL RBC 3.88 L (4.50-5.90) M/uL Hgb 13.4 (13.0-17.0) g/dL Hct 39.5 (38.0-50.0) % MCV 101.8 H (80.0-98.0) fL MCH 34.5 H (27.0-32.0) pg MCHC 33.9 (31.0-37.0) g/dL RDW Std Deviation 48.5 (28.0-62.0) fl RDW Coeff of Joseph 14 (11.0-15.0) % Plt Count 167 (150-400) K/uL MPV 9.90 (7.40-12.00) fL Add Manual Diff YES Neutrophils % (Manual) 90 H (48.0-80.0) % Band Neutrophils % 3 % Lymphocytes % (Manual) 5 L (16.0-40.0) % Monocytes % (Manual) 2 (0.0-15.0) % Nucleated RBC % 0.0 /100WBC Absolute Seg Neuts 13.3 H (1.4-5.7) Band Neutrophils # 0.4 Lymphocytes # (Manual) 0.7 (0.6-2.4) Monocytes # (Manual) 0.3 (0.0-0.8) Nucleated RBCs # 0 K/uL Sodium 136 (136-148) mmol/L Potassium 3.0 L (3.5-5.1) mmol/L Chloride 99 (98-107) mmol/L Carbon Dioxide 30.9 (21.0-32.0) mmol/L BUN 3 L (7.0-18.0) mg/dL Creatinine 0.5 L (0.8-1.3) mg/dL Est Cr Clr Drug Dosing 169.34 mL/min Estimated GFR (MDRD) > 60.0 ml/min Glucose 153 H (74-106) mg/dL Calcium 7.9 L (8.5-10.1) mg/dL Magnesium 1.5 (1.5-2.0) mg/dL Total Bilirubin 1.0 (0.2-1.0) mg/dL AST 110 H (15-37) IU/L ALT 111 H (14-63) IU/L Alkaline Phosphatase 186 H (46-116) U/L Total Protein 5.4 L (6.4-8.2) g/dL Albumin 1.9 L (3.4-5.0) g/dL Globulin 3.5 (2.0-3.5) g/dL Albumin/Globulin Ratio 0.5 L (1.3-2.8) Geovany Results Last 24 Hours: Microbiology 07/02/17 13:25 Aerobic Blood Culture - Preliminary Blood - Venous - Lab Draw NO GROWTH AFTER 3 DAYS Anaerobic Blood Culture - Preliminary NO GROWTH AFTER 3 DAYS 07/02/17 13:15 Aerobic Blood Culture - Preliminary Blood - Venous NO GROWTH AFTER 3 DAYS Anaerobic Blood Culture - Preliminary NO GROWTH AFTER 3 DAYS 07/04/17 20:00 Campylobacter Antigen Assay - Final Stool / Feces Positive Campylobacter Ag - Final NEGATIVE FOR SHIGA TOXIN 1 - Final NEGATIVE FOR SHIGA TOXIN 2 07/04/17 20:00 Clostridium difficile Toxin A & B - Final Stool / Feces Negative for C.Diff Toxin/AG Med Orders - Current: Current Medications Acetaminophen (Tylenol) 650 mg PO Q4H PRN PRN Reason: Pain (mild 1-3) Albuterol/Ipratropium (Duoneb 3.0-0.5 Mg/3 Ml) 3 ml NEB Q4HRRT [facility] Last Admin: 07/05/17 14:23 Dose: 3 ml Amlodipine Besylate (Norvasc) 5 mg PO DAILY [facility] Last Admin: 07/05/17 08:34 Dose: 5 mg Bupropion HCl (Wellbutrin Sr) 150 mg PO BID [facility] Last Admin: 07/05/17 08:33 Dose: 150 mg Enoxaparin Sodium (Lovenox) 40 mg SUBCUT Q24H [facility] Last Admin: 07/05/17 15:10 Dose: 40 mg Levofloxacin/Dextrose 750 mg/ (Premix) 150 mls @ 100 mls/hr IV Q24H [facility] Last Admin: 07/05/17 15:10 Dose: 100 mls/hr Potassium Chloride/Sodium Chloride (Normal Saline With 40 Meq Kcl) 1,000 mls @ 150 mls/hr IV ASDIRECTED [facility] Stop: 07/05/17 21:54 Ibuprofen (Motrin) 800 mg PO Q6H PRN PRN Reason: Pain Last Admin: 07/05/17 15:09 Dose: 800 mg Insulin Aspart (Novolog) 0 unit SUBCUT TIDAC [facility]; Protocol Last Admin: 07/05/17 12:46 Dose: 2 unit Levothyroxine Sodium (Levothyroxine) 75 mcg PO ACBREAKFAST [facility] Last Admin: 07/05/17 06:30 Dose: 75 mcg Lisinopril (Prinivil) 40 mg PO DAILY [facility] Last Admin: 07/05/17 08:31 Dose: 40 mg Loperamide HCl (Imodium) 2 mg PO ASDIRECTED PRN PRN Reason: Diarrhea Omeprazole (Omeprazole) 20 mg PO ACBREAKFAST [facility] Last Admin: 07/05/17 06:30 Dose: 20 mg Ondansetron HCl (Zofran) 4 mg IVPUSH Q4H PRN PRN Reason: Nausea Oxycodone HCl (Oxycodone) 10 mg PO Q4H PRN PRN Reason: Pain Tresiba 1 each SUBCUT DAILY [facility] Last Admin: 07/05/17 08:35 Dose: 1 each Potassium Chloride (Klor-Con M20) 40 meq PO BID [facility] Last Admin: 07/05/17 08:30 Dose: 40 meq Potassium Chloride (Klor-Con M20) 40 meq PO ONETIME ONE Stop: 07/05/17 15:13 Prednisone (Prednisone) 20 mg PO WITHBREAKFAST [facility] Last Admin: 07/05/17 08:33 Dose: 20 mg Sodium Chloride (Saline Flush) 10 ml FLUSH ASDIRECTED PRN PRN Reason: Keep Vein Open Sodium Chloride (Saline Flush) 2.5 ml FLUSH ASDIRECTED PRN PRN Reason: Keep Vein Open Discontinued Medications Albuterol/Ipratropium (Duoneb 3.0-0.5 Mg/3 Ml) 3 ml NEB ONETIME ONE Stop: 07/02/17 12:53 Last Admin: 07/02/17 12:58 Dose: 3 ml Albuterol/Ipratropium (Duoneb 3.0-0.5 Mg/3 Ml) Confirm Administered Dose 3 ml .ROUTE .STK-MED ONE Stop: 07/02/17 12:55 Last Admin: 07/02/17 13:11 Dose: Not Given Albuterol/Ipratropium (Duoneb 3.0-0.5 Mg/3 Ml) 3 ml NEB ONETIME ONE Stop: 07/02/17 14:44 Last Admin: 07/02/17 15:01 Dose: 3 ml Lactated Ringer's (Ringers, Lactated) 1,000 mls @ 999 mls/hr IV .BOLUS ONE Stop: 07/02/17 13:38 Last Admin: 07/02/17 12:38 Dose: 999 mls/hr Ceftriaxone Sodium/Dextrose 1 (gm/ Premix) 50 mls @ 100 mls/hr IV ONETIME ONE Stop: 07/02/17 13:42 Last Admin: 07/02/17 13:48 Dose: 100 mls/hr Sodium Chloride (Normal Saline) 1,000 mls @ 125 mls/hr IV ASDIRECTED [facility] Last Admin: 07/02/17 13:44 Dose: 125 mls/hr Piperacillin Sod/Tazobactam (Sod 4.5 gm/ Sodium Chloride) 100 mls @ 100 mls/hr IV Q6H [facility] Last Admin: 07/05/17 11:40 Dose: 100 mls/hr Vancomycin HCl 1 gm/ Sodium (Chloride) 250 mls @ 250 mls/hr IV Q8H [facility] Last Admin: 07/04/17 11:17 Dose: 250 mls/hr Sodium Chloride (Normal Saline) 1,000 mls @ 999 mls/hr IV STAT ONE Stop: 07/02/17 17:35 Last Admin: 07/02/17 17:01 Dose: 999 mls/hr Sodium Chloride (Normal Saline) 1,000 mls @ 150 mls/hr IV ASDIRECTED [facility] Last Admin: 07/04/17 07:01 Dose: 150 mls/hr Magnesium Sulfate 2 gm/ Premix 50 mls @ 50 mls/hr IV ONETIME ONE Stop: 07/02/17 18:33 Last Infusion: 07/02/17 19:20 Dose: Infused Sodium Chloride (Normal Saline) Confirm Administered Dose 250 mls @ as directed .ROUTE .STK-MED ONE Stop: 07/02/17 20:50 Last Admin: 07/02/17 21:31 Dose: Not Given Potassium Chloride 40 meq/ (Sodium Chloride) 500 mls @ 150 mls/hr IV ONETIME ONE Stop: 07/03/17 10:12 Last Admin: 07/03/17 08:34 Dose: Not Given Potassium Chloride 40 meq/Magnesium Sulfate 2 gm/ Sodium Chloride 504 mls @ 126 mls/hr IV ONETIME ONE Stop: 07/03/17 10:52 Last Admin: 07/03/17 08:35 Dose: Not Given Potassium Chloride 40 meq/Magnesium Sulfate 2 gm/ Sodium Chloride 1,024 mls @ 150 mls/hr IV ONETIME ONE Stop: 07/03/17 13:51 Last Admin: 07/03/17 07:46 Dose: 150 mls/hr Magnesium Sulfate 4 gm/Potassium Chloride 40 meq/Sodium Chloride 1,028 mls @ 150 mls/hr IV ASDIRECTED [facility] Stop: 07/04/17 15:22 Last Admin: 07/04/17 10:19 Dose: 150 mls/hr Ibuprofen (Motrin) 600 mg PO Q6H PRN PRN Reason: Pain Last Admin: 07/03/17 00:21 Dose: 600 mg Ibuprofen (Motrin) 800 mg PO Q6H PRN PRN Reason: Pain Iopamidol (Isovue Multipack-370 (76%)) 50 ml IVPUSH ONETIME ONE Stop: 07/02/17 16:09 Last Admin: 07/02/17 16:09 Dose: 50 ml Oxycodone HCl (Oxycodone) 5 mg PO Q4H PRN PRN Reason: Pain Tresiba 1 each SUBCUT BEDTIME [facility] Potassium Chloride (Klor-Con M20) 40 meq PO ONETIME ONE Stop: 07/02/17 14:54 Last Admin: 07/02/17 15:09 Dose: 40 meq Potassium Chloride (Klor-Con M20) 40 meq PO ONETIME ONE Stop: 07/03/17 06:54 Last Admin: 07/03/17 07:46 Dose: 40 meq Potassium Chloride (Klor-Con M20) 40 meq PO ONETIME ONE Stop: 07/03/17 17:20 Last Admin: 07/03/17 17:47 Dose: 40 meq Vancomycin HCl (Pharmacy To Dose - Vancomycin) 1 dose .XX ASDIRECTED [facility] - Exam General: Alert, Oriented Lungs: Clear to Auscultation, Normal Respiratory Effort Cardiovascular: Regular Rate, Regular Rhythm GI/Abdominal Exam: Soft, Non-Tender Extremities: Non-Tender, No Pedal Edema Skin: Warm, Dry, Intact - Problem List Review Problem List Initiated/Reviewed/Updated: Yes - My Orders Last 24 Hours: My Active Orders 07/05/17 15:12 Potassium Chloride [Klor-Con M20] 40 meq PO ONETIME ONE 07/05/17 15:15 Sodium Chloride 0.9% with KCl 40 mEq @ Enter Rate (1000 mL) Sodium Chloride 0.9 % with KCl [Normal Saline with 40 mEq KCl] 1,000 ml IV ASDIRECTED - Plan Plan:: This 56 flor old male admitted with acute hypoxic respiratory failure, sepsis and severe community acquired pneumonia Pneumonia: will d/c zosyn and continue levaquin Campylobacter: on levaquin Hypokalemia/Hypomagnesemia: replacing potassium again today HTN: Stable. Continue Lisinopril and Amlodipine. Monitor. Steroid induced DM: Continue Tresiba nightly. will check BS TIDAC and use SSI due to severe infection. Hypothyroid: Stable, continue Levothyroxine. Metastatic melanoma: Has been stable, per patient reports two most recent PET scans have been stable. Continue Prednisone 20 mg daily Neck pain: Stable. Continue Motrin and Oxycodone. Reports he takes 20 mg immediate release daily. Explained to him with his respiratory status that is very unsafe, will increase oxycodone to 10 mg and Motrin to 800 Q6hr. He is agreeable to this. VTE prophylaxis: Lovenox. Dispo: 3-4 days pending improvement.
[2017-07-06] MEDS: Albuterol/Ipratropium 3.0-0.5 MG/3 ML Neb Soln NEB SCH ×4 (00:40→09:47)
[2017-07-06 06:46] LABS: CHLORIDE,CL 99 mmol/L (98-107); SODIUM,NA 135 mmol/L (136-148)
[2017-07-06] MEDS: Insulin Aspart 100 Units/ML 3 ML Pen SUBCUT SCH (07:14)
[2017-07-06] MEDS: Omeprazole 20 MG Cap.CR PO SCH (07:14)
[2017-07-06] MEDS: Levothyroxine 75 MCG Tab PO SCH (07:14)
[2017-07-06 07:57] VITALS: BP 154/95
[2017-07-06] MEDS: predniSONE 20 MG Tab PO SCH (08:22)
[2017-07-06] MEDS: buPROPion 150 MG Tab.SR PO SCH (08:22)
[2017-07-06] MEDS: Potassium Chloride 20 MEQ Tab.ER PO SCH (08:22)
[2017-07-06] MEDS: Lisinopril 10 MG Tab PO SCH (08:22)
[2017-07-06] MEDS: amLODIPine 5 MG Tab PO SCH (08:23)
[2017-07-06] MEDS: TRESIBA SUBCUT SCH (08:25)
--- NOTE | 2017-07-06 09:32 | PCM.DCSUM1 ---
Discharge Summary - Discharge Data Discharge Date: 07/06/17 Discharge Disposition: Home, Self-Care 01 Condition: Good - Patient Summary/Data Hospital Course: 56 year old male with pmh of metastatic melanoma of L axilla to thyroid, HTN, immunocompromised secondary to corticosteroids, and steroid induced DM type 2 presented initially to PCP, Dr Benoit with concerns of general malaise, shortness of breath and cough. He was noted to be hypoxic on room air at 59%. He was brought to the ED for further work-up. In the ED leukocytosis noted at 28 ,940, D dimer 2.73, Lactate 2.2 Na 135, K+ 3.0 Cl 89, BUN 11, Cr 0.6, total bili 1.1, AST 55, ALT 36, Alk phos 188, which are near baseline. CXR revealed bilateral pulmonary infiltrates. HR noted to be tachycardic with a wide complex which resolved with oxygen administration, he has continued to have tachycardia 110-120s. he was treated with, PO potassium, Rocephin and 1 L NS bolus in the ED. He was admitted with sepsis, acute hypoxic respiratory failure, and severe CAP. He was treated for possible gram negative chelsey respiratory infection with broad spectrum antibiotics. His stool did test postive for campylobacter. His symptoms gradually improved and he was eventually weaned of oxygen. Today he is satting 89% on RA and is requesting discharge. He was discharged on Levaquin 750mg daily for seven more days. He is to follow up with Dr. Benoit. - Patient Instructions Diet: Usual Diet as Tolerated Activity: As Tolerated - Discharge Plan Prescriptions/Med Rec: Levofloxacin [Levaquin] 750 mg PO DAILY 7 Days tablet Home Medications: Home Meds Levothyroxine 75 mcg PO ACBREAKFAST 07/02/17 [History] Omeprazole 20 mg PO ACBREAKFAST 07/02/17 [History] Potassium Chloride 20 meq PO DAILY 07/02/17 [History] amLODIPine Besylate [Amlodipine Besylate] 5 mg PO DAILY 07/02/17 [History] buPROPion HCl [Wellbutrin SR] 150 mg PO BID 07/02/17 [History] oxyCODONE 5 - 10 mg PO Q6HR PRN 07/02/17 [History] predniSONE 07/02/17 [History] Insulin Degludec/Liraglutide [Xultophy 100 Unit-3.6MG/ml Pen] 10 unit SQ DAILY PRN 07/03/17 [History] Lisinopril 40 mg PO DAILY 07/03/17 [History] Ondansetron [Zofran] 8 mg PO Q8H PRN 07/03/17 [History] Prochlorperazine [Compazine] 10 mg PO Q6H PRN 07/03/17 [History] Levofloxacin [Levaquin] 750 mg PO DAILY 7 Days tablet 07/06/17 [Rx] Patient Handouts: Community-Acquired Pneumonia, Adult, [id number] Referrals: Carlos Manuel Benoit MD [Physician] - 07/17/17 10:30 am - Patient Data Vitals - Most Recent: Last Vital Signs Temp 36.4 C 07/06/17 07:55 Pulse 119 H 07/06/17 07:55 Resp 20 07/06/17 07:55 BP 154/95 H 07/06/17 08:23 Pulse Ox 90 L 07/06/17 07:55 Weight - Most Recent: 72.575 kg I&O - Last 24 hours: Intake & Output 07/05/17 07/06/17 07/06/17 22:59 06:59 14:59 Intake Total 1640 1200 Output Total 0 Balance 1640 1200 Lab Results - Last 24 hrs: Laboratory Results - last 24 hr 07/06/17 07/06/17 Range/Units 06:00 06:00 WBC 13.47 H (4.0-11.0) K/uL RBC 3.86 L (4.50-5.90) M/uL Hgb 13.5 (13.0-17.0) g/dL Hct 39.4 (38.0-50.0) % MCV 102.1 H (80.0-98.0) fL MCH 35.0 H (27.0-32.0) pg MCHC 34.3 (31.0-37.0) g/dL RDW Std Deviation 49.4 (28.0-62.0) fl RDW Coeff of Joseph 14 (11.0-15.0) % Plt Count 151 (150-400) K/uL MPV 10.20 (7.40-12.00) fL Add Manual Diff YES Neutrophils % (Manual) 82 H (48.0-80.0) % Band Neutrophils % 4 % Lymphocytes % (Manual) 14 L (16.0-40.0) % Nucleated RBC % 0.0 /100WBC Absolute Seg Neuts 11.0 H (1.4-5.7) Band Neutrophils # 0.5 Lymphocytes # (Manual) 1.9 (0.6-2.4) Nucleated RBCs # 0 K/uL Sodium 135 L (136-148) mmol/L Potassium 4.1 (3.5-5.1) mmol/L Chloride 99 (98-107) mmol/L Carbon Dioxide 28.2 (21.0-32.0) mmol/L BUN 4 L (7.0-18.0) mg/dL Creatinine 0.4 L (0.8-1.3) mg/dL Est Cr Clr Drug Dosing 211.68 mL/min Estimated GFR (MDRD) > 60.0 ml/min Glucose 163 H (74-106) mg/dL Calcium 8.1 L (8.5-10.1) mg/dL Magnesium 1.2 L (1.5-2.0) mg/dL Total Bilirubin 1.1 H (0.2-1.0) mg/dL AST 81 H (15-37) IU/L ALT 104 H (14-63) IU/L Alkaline Phosphatase 174 H (46-116) U/L Total Protein 5.5 L (6.4-8.2) g/dL Albumin 1.9 L (3.4-5.0) g/dL Globulin 3.6 H (2.0-3.5) g/dL Albumin/Globulin Ratio 0.5 L (1.3-2.8) CLAU Results - Last 24 hrs: Microbiology 07/04/17 20:00 Stool Culture - Final Stool / Feces Campylobacter Antigen Assay - Final Positive Campylobacter Ag - Final NEGATIVE FOR SHIGA TOXIN 1 - Final NEGATIVE FOR SHIGA TOXIN 2 07/02/17 13:25 Aerobic Blood Culture - Preliminary Blood - Venous - Lab Draw NO GROWTH AFTER 3 DAYS Anaerobic Blood Culture - Preliminary NO GROWTH AFTER 3 DAYS 07/02/17 13:15 Aerobic Blood Culture - Preliminary Blood - Venous NO GROWTH AFTER 3 DAYS Anaerobic Blood Culture - Preliminary NO GROWTH AFTER 3 DAYS Med Orders - Current: Current Medications Acetaminophen (Tylenol) 650 mg PO Q4H PRN PRN Reason: Pain (mild 1-3) Albuterol/Ipratropium (Duoneb 3.0-0.5 Mg/3 Ml) 3 ml NEB Q4HRRT [facility] Last Admin: 07/06/17 06:01 Dose: 3 ml Amlodipine Besylate (Norvasc) 5 mg PO DAILY [facility] Last Admin: 07/06/17 08:23 Dose: 5 mg Bupropion HCl (Wellbutrin Sr) 150 mg PO BID [facility] Last Admin: 07/06/17 08:22 Dose: 150 mg Enoxaparin Sodium (Lovenox) 40 mg SUBCUT Q24H [facility] Last Admin: 07/05/17 15:10 Dose: 40 mg Levofloxacin/Dextrose 750 mg/ (Premix) 150 mls @ 100 mls/hr IV Q24H [facility] Last Admin: 07/05/17 15:10 Dose: 100 mls/hr Ibuprofen (Motrin) 800 mg PO Q6H PRN PRN Reason: Pain Last Admin: 07/05/17 23:30 Dose: 800 mg Insulin Aspart (Novolog) 0 unit SUBCUT TIDAC [facility]; Protocol Last Admin: 07/06/17 07:14 Dose: 1 unit Levothyroxine Sodium (Levothyroxine) 75 mcg PO ACBREAKFAST [facility] Last Admin: 07/06/17 07:14 Dose: 75 mcg Lisinopril (Prinivil) 40 mg PO DAILY [facility] Last Admin: 07/06/17 08:22 Dose: 40 mg Loperamide HCl (Imodium) 2 mg PO ASDIRECTED PRN PRN Reason: Diarrhea Omeprazole (Omeprazole) 20 mg PO ACBREAKFAST [facility] Last Admin: 07/06/17 07:14 Dose: 20 mg Ondansetron HCl (Zofran) 4 mg IVPUSH Q4H PRN PRN Reason: Nausea Oxycodone HCl (Oxycodone) 10 mg PO Q4H PRN PRN Reason: Pain Last Admin: 07/05/17 18:50 Dose: 10 mg Tresiba 1 each SUBCUT DAILY [facility] Last Admin: 07/06/17 08:25 Dose: 1 each Potassium Chloride (Klor-Con M20) 40 meq PO BID [facility] Last Admin: 07/06/17 08:22 Dose: 40 meq Prednisone (Prednisone) 20 mg PO WITHBREAKFAST [facility] Last Admin: 07/06/17 08:22 Dose: 20 mg Sodium Chloride (Saline Flush) 10 ml FLUSH ASDIRECTED PRN PRN Reason: Keep Vein Open Sodium Chloride (Saline Flush) 2.5 ml FLUSH ASDIRECTED PRN PRN Reason: Keep Vein Open Discontinued Medications Albuterol/Ipratropium (Duoneb 3.0-0.5 Mg/3 Ml) 3 ml NEB ONETIME ONE Stop: 07/02/17 12:53 Last Admin: 07/02/17 12:58 Dose: 3 ml Albuterol/Ipratropium (Duoneb 3.0-0.5 Mg/3 Ml) Confirm Administered Dose 3 ml .ROUTE .STK-MED ONE Stop: 07/02/17 12:55 Last Admin: 07/02/17 13:11 Dose: Not Given Albuterol/Ipratropium (Duoneb 3.0-0.5 Mg/3 Ml) 3 ml NEB ONETIME ONE Stop: 07/02/17 14:44 Last Admin: 07/02/17 15:01 Dose: 3 ml Lactated Ringer's (Ringers, Lactated) 1,000 mls @ 999 mls/hr IV .BOLUS ONE Stop: 07/02/17 13:38 Last Admin: 07/02/17 12:38 Dose: 999 mls/hr Ceftriaxone Sodium/Dextrose 1 (gm/ Premix) 50 mls @ 100 mls/hr IV ONETIME ONE Stop: 07/02/17 13:42 Last Admin: 07/02/17 13:48 Dose: 100 mls/hr Sodium Chloride (Normal Saline) 1,000 mls @ 125 mls/hr IV ASDIRECTED [facility] Last Admin: 07/02/17 13:44 Dose: 125 mls/hr Piperacillin Sod/Tazobactam (Sod 4.5 gm/ Sodium Chloride) 100 mls @ 100 mls/hr IV Q6H [facility] Last Admin: 07/05/17 11:40 Dose: 100 mls/hr Vancomycin HCl 1 gm/ Sodium (Chloride) 250 mls @ 250 mls/hr IV Q8H [facility] Last Admin: 07/04/17 11:17 Dose: 250 mls/hr Sodium Chloride (Normal Saline) 1,000 mls @ 999 mls/hr IV STAT ONE Stop: 07/02/17 17:35 Last Admin: 07/02/17 17:01 Dose: 999 mls/hr Sodium Chloride (Normal Saline) 1,000 mls @ 150 mls/hr IV ASDIRECTED [facility] Last Admin: 07/04/17 07:01 Dose: 150 mls/hr Magnesium Sulfate 2 gm/ Premix 50 mls @ 50 mls/hr IV ONETIME ONE Stop: 07/02/17 18:33 Last Infusion: 07/02/17 19:20 Dose: Infused Sodium Chloride (Normal Saline) Confirm Administered Dose 250 mls @ as directed .ROUTE .STK-MED ONE Stop: 07/02/17 20:50 Last Admin: 07/02/17 21:31 Dose: Not Given Potassium Chloride 40 meq/ (Sodium Chloride) 500 mls @ 150 mls/hr IV ONETIME ONE Stop: 07/03/17 10:12 Last Admin: 07/03/17 08:34 Dose: Not Given Potassium Chloride 40 meq/Magnesium Sulfate 2 gm/ Sodium Chloride 504 mls @ 126 mls/hr IV ONETIME ONE Stop: 07/03/17 10:52 Last Admin: 07/03/17 08:35 Dose: Not Given Potassium Chloride 40 meq/Magnesium Sulfate 2 gm/ Sodium Chloride 1,024 mls @ 150 mls/hr IV ONETIME ONE Stop: 07/03/17 13:51 Last Admin: 07/03/17 07:46 Dose: 150 mls/hr Magnesium Sulfate 4 gm/Potassium Chloride 40 meq/Sodium Chloride 1,028 mls @ 150 mls/hr IV ASDIRECTED [facility] Stop: 07/04/17 15:22 Last Admin: 07/04/17 10:19 Dose: 150 mls/hr Potassium Chloride 40 meq/ (Sodium Chloride) 1,020 mls @ 150 mls/hr IV ASDIRECTED [facility] Stop: 07/05/17 22:02 Last Admin: 07/05/17 18:17 Dose: 150 mls/hr Ibuprofen (Motrin) 600 mg PO Q6H PRN PRN Reason: Pain Last Admin: 07/03/17 00:21 Dose: 600 mg Ibuprofen (Motrin) 800 mg PO Q6H PRN PRN Reason: Pain Iopamidol (Isovue Multipack-370 (76%)) 50 ml IVPUSH ONETIME ONE Stop: 07/02/17 16:09 Last Admin: 04/04/18 16:09 Dose: 50 ml Oxycodone HCl (Oxycodone) 5 mg PO Q4H PRN PRN Reason: Pain Tresiba 1 each SUBCUT BEDTIME [facility] Potassium Chloride (Klor-Con M20) 40 meq PO ONETIME ONE Stop: 07/02/17 14:54 Last Admin: 07/02/17 15:09 Dose: 40 meq Potassium Chloride (Klor-Con M20) 40 meq PO ONETIME ONE Stop: 07/03/17 06:54 Last Admin: 07/03/17 07:46 Dose: 40 meq Potassium Chloride (Klor-Con M20) 40 meq PO ONETIME ONE Stop: 07/03/17 17:20 Last Admin: 07/03/17 17:47 Dose: 40 meq Potassium Chloride (Klor-Con M20) 40 meq PO ONETIME ONE Stop: 07/05/17 15:13 Last Admin: 07/05/17 16:52 Dose: 40 meq Vancomycin HCl (Pharmacy To Dose - Vancomycin) 1 dose .XX ASDIRECTED [facility]
[2017-07-06] MEDS: Ibuprofen 800 MG Tab PO PRN (11:02)
== END 2017-07-06 10:40 | disposition home or self-care (01) | DRG 720 ==
LOC: MW.ED 12:25 → MW.MS 15:28 → UNDODISIN 07-06 11:40
PROVIDERS: ADMIT Internal Medicine; ATTEND Internal Medicine
DX: A41.9 Sepsis, unspecified organism (principal); J96.01 Acute respiratory failure with hypoxia; J15.6 Pneumonia due to other Gram-negative bacteria; T38.0X1A Poisoning by glucocorticoids and synthetic analogues, accidental (unintentional), initial encounter; D84.8 Other specified immunodeficiencies; R00.0 Tachycardia, unspecified; I10 Essential (primary) hypertension; E03.9 Hypothyroidism, unspecified; E09.9 Drug or chemical induced diabetes mellitus without complications; T38.0X5A Adverse effect of glucocorticoids and synthetic analogues, initial encounter; Y92.019 Unspecified place in single-family (private) house as the place of occurrence of the external cause; M54.2 Cervicalgia; E87.6 Hypokalemia; E83.42 Hypomagnesemia; F32.9 Major depressive disorder, single episode, unspecified; K21.9 Gastro-esophageal reflux disease without esophagitis; F17.200 Nicotine dependence, unspecified, uncomplicated; Z79.4 Long term (current) use of insulin; Z85.820 Personal history of malignant melanoma of skin; Z79.899 Other long term (current) drug therapy
CPT/HCPCS: 36415; 71045; 71045-26; 71275; 71275-26; 80048; 80053; 80202; 81001; 82962; 83605; 83735; 83880; 84443; 84484; 85025; 85379; 87040; 87046; 87070; 87205; 87324; 87804; 87899; 94640; 96361; 96365; 99284; 99285-25; A9270-GY; G0480; J0696; J1650; J1815-GY; J1956; J2543; J3370; J3475; J3480; J7030; J7040; J7050; J7120; Q9967

== ENCOUNTER 2018-11-26 10:42 | Day surgery (SDC) | payer BC ==
[~2018-11-26 10:42] MED LIST: Lactated Ringers 1,000 ML IV SCH; Sodium Chloride 0.9% 10 ML SDV IV PRN; Sodium Chloride 0.9% 10 ML Syringe FLUSH PRN; Sodium Chloride 0.9% 2.5 ML Syringe FLUSH PRN
--- NOTE | 2018-11-26 11:51 | PCM.PREANE ---
Preanesthetic Assessment - Anesthesia/Transfusion/Family Hx Anesthesia History: Prior Anesthesia Without Reaction Family History of Anesthesia Reaction: No Transfusion History: Prior Transfusion Without Reaction Intubation History: Unknown - Review of Systems General: No Symptoms Pulmonary: No Symptoms Cardiovascular: No Symptoms Gastrointestinal: No Symptoms, Other (anemia, h/o melanoma- increased aptake in the stomach and atrium on PET scan) Neurological: No Symptoms Other: Reports: None - Physical Assessment Vital Signs: Last Vital Signs Temp 36.5 C 11/26/18 11:10 Pulse 89 11/26/18 11:10 Resp 16 11/26/18 11:10 BP 163/89 H 11/26/18 11:10 Pulse Ox 99 11/26/18 11:10 Height: 6 ft 1 in Weight: 66.678 kg ASA Class: 3 Mental Status: Alert & Oriented x3 Airway Class: Mallampati = 2 Dentition: Reports: Normal Dentition Thyro-Mental Finger Breadths: 3 Mouth Opening Finger Breadths: 3 ROM/Head Extension: Full Lungs: Clear to Auscultation, Normal Respiratory Effort Cardiovascular: Regular Rate, Regular Rhythm - Allergies Allergies/Adverse Reactions: Allergies Allergy/AdvReac Type Severity Reaction Status Date / Time No Known Allergies Allergy Verified 11/23/18 11:25 - Blood Blood Available: No - Anesthesia Plan Pre-Op Medication Ordered: None - Acknowledgements Anesthesia Type Planned: MAC Pt an Appropriate Candidate for the Planned Anesthesia: Yes Alternatives and Risks of Anesthesia Discussed w Pt/Guardian: Yes Pt/Guardian Understands and Agrees with Anesthesia Plan: Yes PreAnesthesia Questionnaire HEENT History: Reports: Other (See Below) Other HEENT History: wears glasses Cardiovascular History: Reports: Hypertension Respiratory History: Reports: SOB (able 2 blocke or 2 flights of stairs without SOB) Gastrointestinal History: Reports: GERD, Other (See Below) Other Gastrointestinal History: hx of Portaal vein thrombosis, LFT's chronicaly elevated Genitourinary History: Reports: None. Denies: Chronic Renal Insuffiency Musculoskeletal History: Reports: Back Pain, Chronic, Neck Pain, Chronic Neurological History: Reports: Other (See Below) Other Neuro History: hx of claustrophobia Psychiatric History: Reports: Anxiety Endocrine/Metabolic History: Reports: Diabetes, Type II, Hypothyroidism, Other ( See Below) (h/o hepatic encephalopathy) Hematologic History: Reports: Anemia, Anticoagulation Therapy, Blood Transfusion (s) Oncologic (Cancer) History: Reports: Malignant Melanoma Other Oncologic History: malignant melanoma on back - spread to axilla and then to thyroid Dermatologic History: Reports: Psoriasis - Past Surgical History GI Surgical History: Reports: Colonoscopy (10 years ago) Oncologic Surgical History: Reports: Other (See Below) Other Oncologic Surgeries/Procedures: axillary lymph nodes removed Dermatological Surgical History: Reports: Skin Biopsy - SUBSTANCE USE Smoking Status *Q: Current Every Day Smoker (10-15 cigarettes per day) Tobacco Use Within Last Twelve Months: Cigarettes Days Per Week of Alcohol Use: 7 Number of Drinks Per Day: 4 Total Drinks Per Week: 28 Recreational Drug Use History: Yes Recreational Drug Type: Reports: Marijuana/Hashish - HOME MEDS Home Medications: Home Meds Levothyroxine 75 mcg PO ACBREAKFAST 07/02/17 [History] Omeprazole 20 mg PO ACBREAKFAST 07/02/17 [History] Potassium Chloride 20 meq PO DAILY 07/02/17 [History] buPROPion HCl [Wellbutrin SR] 150 mg PO BID 07/02/17 [History] Albuterol Sulfate [Proair Hfa] 1 - 2 puff INH Q4H PRN 11/23/18 [History] Apixaban [Eliquis] 5 mg PO BID 11/23/18 [History] Lisinopril 10 mg PO DAILY 11/23/18 [History] Multivitamin [Daily Multiple Vitamin] 1 tab PO DAILY 11/23/18 [History] Tiotropium Br/Olodaterol HCl [Stiolto Respimat Inhal Robinson] 2 puff INH QAM 11/23 [History] - CURRENT (IN HOUSE) MEDS Current Meds: Current Medications Lactated Ringer's (Ringers, Lactated) 1,000 mls @ 125 mls/hr IV ASDIRECTED ANGELITO Last Admin: 11/26/18 11:25 Dose: 125 mls/hr Sodium Chloride (Saline Flush) 10 ml FLUSH ASDIRECTED PRN PRN Reason: Keep Vein Open Sodium Chloride (Saline Flush) 2.5 ml FLUSH ASDIRECTED PRN PRN Reason: Keep Vein Open Sodium Chloride (Saline Flush) 10 ml FLUSH ASDIRECTED PRN PRN Reason: Keep Vein Open Sodium Chloride (Saline Flush) 2.5 ml FLUSH ASDIRECTED PRN PRN Reason: Keep Vein Open Sodium Chloride (Normal Saline) 10 ml IV ASDIRECTED PRN PRN Reason: IV Use
[2018-11-26] MEDS ORDERED: Lidocaine 2% 5 ML SDV ONE (12:30)
[2018-11-26] MEDS ORDERED: Propofol 200 MG/20 ML SDV ONE (12:31)
[2018-11-26] MEDS ORDERED: fentaNYL 100 MCG/2 ML SDV ONE (12:31)
[2018-11-26] MEDS ORDERED: Midazolam 1 MG/ML 2 ML SDV ONE (12:31)
--- NOTE | 2018-11-26 13:32 | PCM.OPNOTE ---
- General Post-Op/Procedure Note Date of Surgery/Procedure: 11/26/18 Operative Procedure(s): Upper EGD and colonoscopy Findings: Normal EGD. 2 transverse colon polyps and 1 descending colon polyp. Pre Op Diagnosis: Anemia Post-Op Diagnosis: 2 transverse colon polyps and 1 descending colon polyp Anesthesia Technique: MAC Primary Surgeon: Laura Matias Complications: None Condition: Good
--- NOTE | 2018-11-26 13:55 | PCM.POSTAN ---
POST ANESTHESIA ASSESSMENT - MENTAL STATUS Mental Status: Alert, Oriented - VITAL SIGNS Vital Signs: Last Vital Signs Temp 36.3 C 11/26/18 13:35 Pulse 71 11/26/18 13:45 Resp 16 11/26/18 13:45 BP 152/86 H 11/26/18 13:45 Pulse Ox 100 11/26/18 13:45 - RESPIRATORY Respiratory Status: Respiratory Rate WNL, Airway Patent, O2 Saturation Stable - CARDIOVASCULAR CV Status: Pulse Rate WNL, Blood Pressure Stable - GASTROINTESTINAL GI Status: No Symptoms - PAIN Pain Score: 0 - POST OP HYDRATION Hydration Status: Adequate & Stable - OBSERVATIONS Free Text/Narrative:: no anesthesia problems
[2018-11-26 14:10] VITALS: BP 143/89
--- NOTE | 2018-11-26 14:27 | PCM48HPAN ---
Post Anesthesia Note - EVALUATION WITHIN 48HRS OF ANESTHETIC Vital Signs in Normal Range: Yes Patient Participated in Evaluation: Yes Respiratory Function Stable: Yes Airway Patent: Yes Cardiovascular Function Stable: Yes Hydration Status Stable: Yes Pain Control Satisfactory: Yes Nausea and Vomiting Control Satisfactory: Yes Mental Status Recovered: Yes Vital Signs: Last Vital Signs Temp 36.0 C 11/26/18 14:02 Pulse 74 11/26/18 14:02 Resp 16 11/26/18 14:02 BP 143/89 H 11/26/18 14:02 Pulse Ox 100 11/26/18 14:02 - COMMENTS/OBSERVATIONS Free Text/Narrative:: no anesthesia problems
--- NOTE | 2018-11-27 12:56 | OR ---
SURGEON: LAURA MATIAS MD DATE OF PROCEDURE: 11/26/2018 PREOPERATIVE DIAGNOSIS: Anemia. POSTOPERATIVE DIAGNOSES: 1. Normal esophagogastroduodenoscopy. 2. Transverse colon polyps x2. 3. Descending colon polyp x1. PROCEDURE PERFORMED: Diagnostic esophagogastroduodenoscopy and colonoscopy. PRIMARY SURGEON: Laura Matias MD. ANESTHESIA: MAC. INSTRUMENT USED: Olympus endoscope and colonoscope. EXTENT OF EXAM: To the second portion of duodenum, to the cecum. PREPARATION: Good. LIMITATIONS: None. INDICATIONS FOR EXAMINATION: The patient is a 58-year-old male who presents from his oncologist's office with anemia. He has a history of malignant melanoma. He also has a history of alcohol abuse and has signs of liver cirrhosis. On a recent PET scan, there was a questionable uptake in the antrum of the stomach. The decision was made to proceed with a diagnostic EGD and colonoscopy after preoperative clearance. I explained the procedure; expected perioperative course; and risks including bleeding, infection, or damage to surrounding structures including perforation. The patient verbalized understanding and wishes to proceed. PROCEDURE IN DETAIL: The patient was brought into the endoscopy suite and placed in the left lateral decubitus position. A time-out was completed verifying the patient's name, age, date of , allergies, and procedure to be performed. A bite block was placed in the patient's mouth. Monitored anesthesia care was induced and continuous oxygen was provided via nasal cannula throughout the procedure. After adequate sedation was achieved, a well-lubricated endoscope was placed in the patient's mouth and advanced under direct visualization to the second portion of duodenum. This appeared normal and a photograph was taken. The scope was then fully withdrawn while examining the color, texture, anatomy, and integrity of the mucosa of the upper GI tract. The duodenum appeared to be free of pathology. The scope was brought into the stomach and a photograph was taken of the pylorus and the GE junction. Both appeared anatomically normal. Close inspection of the gastric mucosa showed no signs of ulceration or gross inflammation. Biopsies were taken of the gastric antrum, body, and fundus and sent for histologic review and H. pylori testing. The scope was then brought into the distal esophagus and a photograph taken of the Z-line. This appeared normal. The esophageal mucosa appeared somewhat pale, but otherwise showed no signs of gross inflammation or ulceration. A biopsy was taken 2 cm above the Z- line of the esophagus and sent to pathology for histologic review. The scope was removed and this portion of the procedure terminated. A digital rectal exam was performed. This exam was within normal limits. A well-lubricated colonoscope was inserted in the rectum and advanced under direct visualization to the level of the cecum. The cecum was identified by both visual and anatomic landmarks. A photograph was taken of the cecal cap; however, I was unable to retroflex the scope within the cecum due to looping of the scope more proximally. The scope was then fully withdrawn while examining the color, texture, anatomy, and integrity of the mucosa from the cecum to the anal canal. In the distal transverse colon, the patient was found to have two small sessile polyps. These were removed in piecemeal fashion using cold biopsy forceps. In the descending colon, the patient had a larger sessile polyp. This was removed in piecemeal fashion using cold biopsy forceps. This was at approximately 35 cm. The remainder of the colon appeared normal. The scope was then brought into the rectum and retroflexed to allow visualization of the anal canal opening. This appeared normal and a photograph was taken. Scope was straightened out and fully withdrawn. The cecum to anus time was 13 minutes. The patient tolerated the procedure well and was transferred to the PACU in stable condition. ENDOSCOPIC DIAGNOSES: 1. Normal esophagogastroduodenoscopy. 2. Transverse colon polyps x2. 3. Descending colon polyp x1. RECOMMENDATIONS: Follow up in clinic in 2 weeks. HOWARD PHELAN /[id number]
== END 2018-11-26 14:22 | disposition home or self-care (01) ==
LOC: MW.SDS 10:42
PROVIDERS: ATTEND Surgery
DX: D64.9 Anemia, unspecified (principal); K29.50 Unspecified chronic gastritis without bleeding; D12.4 Benign neoplasm of descending colon; D12.3 Benign neoplasm of transverse colon; F41.9 Anxiety disorder, unspecified; E11.65 Type 2 diabetes mellitus with hyperglycemia; F17.210 Nicotine dependence, cigarettes, uncomplicated; K21.9 Gastro-esophageal reflux disease without esophagitis; I12.9 Hypertensive chronic kidney disease with stage 1 through stage 4 chronic kidney disease, or unspecified chronic kidney disease; E11.22 Type 2 diabetes mellitus with diabetic chronic kidney disease; N18.9 Chronic kidney disease, unspecified; E03.9 Hypothyroidism, unspecified; Z79.899 Other long term (current) drug therapy; Z79.01 Long term (current) use of anticoagulants
CPT/HCPCS: 36415; 43239; 45380; 85610; 85730; G0480; J2001; J2250; J2704; J3010; J7120; 00813

== ENCOUNTER 2019-07-29 23:29 | Observation (INO) | payer BC ==
--- NOTE | 2019-07-29 23:59 | CT ---
INDICATION: Head injury from fall, on aspirin TECHNIQUE: CT Head without i.v. contrast. COMPARISON: None FINDINGS: CSF space: The ventricles are normal for age. Brain: No evidence of mass, acute infarction or hemorrhage is seen. No mass-effect or midline shift is seen. The brain parenchyma is otherwise normal in appearance with preservation of the ceidllo-white matter junction. Calvarium: The visualized paranasal sinuses are well aerated. The mastoid air cells are clear. The visualized orbits are grossly unremarkable. The calvarium is unremarkable in appearance with no fractures identified. IMPRESSION: 1. No evidence of acute infarction, intracranial hemorrhage, or mass-effect seen. Please note that all CT scans at this facility use dose modulation, iterative reconstruction, and/or weight-based dosing when appropriate to reduce radiation dose to as low as reasonably achievable. Dictated by: Mendoza Delarosa MD @ 07/29/2019 23:58:44 (Electronically Signed)
--- NOTE | 2019-07-29 23:59 | CR ---
INDICATION: Chest pain. Previous history of melanoma status post immunotherapy and radiation treatment. COMPARISON: Report of the previous PET/CT scan from 04/08/2019 FINDINGS: An erect single view of the chest was obtained at 23 46 hours. There is mild linear density in the left superior perihilar lung consistent with atelectasis. This is not reported on the previous PET/CT scan and is probably new. The rest of the chest remains clear. The heart remains normal in size. The mediastinum is normal in appearance. The osseous structures are normal in appearance for the patient`s age. IMPRESSION: New mild linear atelectasis in the left superior perihilar lung. Otherwise no active disease seen in the chest. Dictated by Jorge L Freed MD @ Jul 29 2019 11:56PM Signed by Dr. Jorge L Freed @ Jul 29 2019 11:58PM
[2019-07-30 00:02] LABS: BLOOD UREA NITROGEN,BUN 14 mg/dL (7.0-18.0); CARBON DIOXIDE,CO2 17.8 mmol/L (21.0-32.0); CHLORIDE,CL 101 mmol/L (98-107); GLUCOSE RANDOM 158 mg/dL (74-106); LIPASE 424 U/L (73-393); POTASSIUM,K 3.9 mmol/L (3.5-5.1); SODIUM,NA 138 mmol/L (136-148)
[2019-07-30] MEDS ORDERED: Iopamidol 755 Mg/ML 100 ML Bottle IVPUSH ONE (00:35)
--- NOTE | 2019-07-30 00:58 | CT ---
INDICATION: Abdominal distension, jaundice TECHNIQUE: CT Abdomen and pelvis with i.v. contrast. Coronal and sagittal reformats were obtained. CONTRAST: 100 mL Isovue 370 COMPARISON: None FINDINGS: Lower chest: Unremarkable. Liver: Liver has a nodular contour with innumerable small hypodense lesions present, likely due to micronodular cirrhosis. Spleen: Unremarkable. Pancreas: There is a low-density lesion within the pancreatic head measuring 3.6 x 2.8 cm. Gallbladder: Unremarkable. Kidney: Unremarkable. No kidney or ureteral stones or obstruction seen. Adrenal: Unremarkable. Bowel: Mild fluid distention of the stomach is noted. Mild wall thickening is present in the distal esophagus. The appendix is normal in appearance and size. Vascular: Unremarkable. Lymph: Unremarkable. Peritoneum: Unremarkable. No pneumoperitoneum is seen. A small moderate amount of abdominal ascites is present. Pelvis: Unremarkable. Soft tissue: Unremarkable. Bone: Unremarkable for age. IMPRESSIONS: 1. Liver has a nodular contour with innumerable small hypodense lesions present, likely due to micronodular cirrhosis. 2. A small moderate amount of abdominal ascites is present. 3. There is a low-density lesion within the pancreatic head measuring 3.6 x 2.8 cm. The differential diagnosis includes a pseudocyst or a cystic/necrotic pancreatic mass. 4. Mild wall thickening is present in the distal esophagus. This may be due to reflux esophagitis. Assessment with outpatient endoscopy or barium swallow may be helpful. Dictated by Mendoza Delarosa MD @ 07/30/2019 12:56:23 AM Please note that all CT scans at this facility use dose modulation, iterative reconstruction, and/or weight-based dosing when appropriate to reduce radiation dose to as low as reasonably achievable. Dictated by: Mendoza Delarosa MD @ 07/30/2019 00:56:33 (Electronically Signed)
[2019-07-30] MEDS ORDERED: Lactulose Soln 10 GM/15 ML 15 ML UD Cup ONE (01:22)
[2019-07-30] MEDS ORDERED: Lactulose Soln 10 GM/15 ML 15 ML UD Cup PO STA (01:25)
[2019-07-30] MEDS ORDERED: Sodium Chloride 0.9% 1,000 ML IV ONE ×2 (01:40→11:01)
--- NOTE | 2019-07-30 02:10 | EDM.PDOC ---
ED HPI GENERAL MEDICAL PROBLEM - General Chief Complaint: Trauma Stated Complaint: POSSIBLE HEAD INJURY Time Seen by Provider: 07/29/19 23:34 Source of Information: Reports: Patient, EMS History Limitations: Reports: No Limitations - History of Present Illness INITIAL COMMENTS - FREE TEXT/NARRATIVE: HISTORY OF PRESENT ILLNESS: Patient is a 58-year-old male with history of stage IV malignant melanoma who presents to the ER s/p syncopal episode. Patient states he had a mild headache and was on the way to the kitchen to get an Advil when he had a brief syncopal episode resulting in falling and striking his head on the ground. Reports striking the posterior head. Pt is on Eliquis but does not know why. Patient briefly lost consciousness according to EMS and daughter, but patient states he was just "dazed". He was disoriented when EMS arrived but is now A and O x 4. Denies any other facial injury. No neck or back pain. No chest pain dyspnea . Had mild lower abdominal pain in the morning , long prior to syncopal episode, which resolved spontaneously. No present abdominal pain. Denies any recent fever or infection. Pt is extremely jaundiced but denies any history of cirrhosis or liver mets. Extremely poor historian regarding his medical conditions. Pt does admit to chronic alcoholism but has cut down recently. Had only 2 beers today. Oncologist is Dr. Hilton. REVIEW OF SYSTEMS: Other than the symptoms associated with the present events, the following is reported with regard to recent health: General: (-) fever. HENT: (-) congestion. Respiratory: (-) cough. Cardiovascular: (-) chest pain. GI: (+) abdominal pain this morning which resolved. : (-) urinary complaints. Musculoskeletal: (-) other aches or pains. Endocrine: (-) generalized weakness. Neurological: (-) localized weakness. Skin: (-) rash PAST MEDICAL HISTORY: reviewed as per nursing notes SOCIAL HISTORY: reviewed as per nursing notes, MEDICATIONS: Per nurse's note ALLERGIES: Per nurse's note, reviewed by me PHYSICAL EXAMINATION: GENERALIZED APPEARANCE: well developed, well nourished in no distress VITAL SIGNS: Per nurse's note, reviewed by me SKIN: Warm, dry; (-) cyanosis; (+) jaundiced HEAD: (+)mild posterior scalp swelling, (-) bony deformity NECK: no midline tenderness. FROM without pain BACK: no TLS tenderness, step off or deformity PELVIC: no instability/tenderness EYES: , (+) scleral icterus. ENMT: (-) stridor; mucous membranes slightly dry NECK: (-) tenderness, (-) stiffness, CHEST AND RESPIRATORY: (-) rales, (-) rhonchi, (-) wheezes; breath sounds equal bilaterally. HEART AND CARDIOVASCULAR: tachycardic, regular rhythm (-) murmur, (-) gallop. ABDOMEN AND GI: Soft; (-) tenderness, (-) guarding, (-) rebound, (-) pulsatile mass EXTREMITIES: (-) deformity, (-) edema. NEURO AND PSYCH: Alert. Cranial nerves grossly intact; strength symmetric. gait steady. no asterixis . oriented x 4, but seems confused when asked about medical conditions. normal speech. 5/5+ Strength. sensation intact. DIAGNOSTICS: CT head: No evidence of acute infarction, intracranial hemorrhage or mass- effect seen. As read by radiologistDr. 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 A small moderate amount of abdominal ascites is present. There is a low-density lesion within the pancreatic head measuring 3.6 x 2.8 cm. The differential diagnosis includes pseudocyst or a cystic/necrotic pancreatic mass. Mild wall thickening is present in the distal esophagus this may be due to reflux esophagitis. Assessment with outpatient endoscopy or barium swallow may be helpful as read by Dr. Delarosa, radiologist CXR: New mild linear atelectasis in the left superior perihilar lung as read by radiologist, Dr. Freed EKG: st at 132 bpm. n[address]. [address] elevation or depression.q wave ii, avf. Labs ordered and reviewed EMERGENCY DEPARTMENT COURSE AND TREATMENT: Patient's condition remained stable during Emergency Department evaluation. Pt seen and evaluated. Extremely difficult historian regarding his medical history and confused about this subject, but otherwise oriented x 4. He is extremely jaundiced. Labs noted. WBC 11, no fever or tenderness on examination of abdomen and no significant ascites. Do not suspect sepsis or SBP at this time. LFTS/bilirubin/ammonia/ lipase noted. Given Lactulose and IVF here. CT demonstrating pancreatic mass and cirrhosis. Pt will require admission. Pt adamantly wants to leave but gives permission for his daughter to come in and try to convince him. After multiple attempts, eventually able to convince patient not to leave AMA. Case d/ w Dr. Madrigal who kindly agrees to admit. PLAN AND FOLLOW-UP: Admit - Related Data Allergies Allergy/AdvReac Type Severity Reaction Status Date / Time No Known Allergies Allergy Verified 07/29/19 23:58 Home Meds: Home Meds Levothyroxine 75 mcg PO ACBREAKFAST 07/02/17 [History] Omeprazole 20 mg PO ACBREAKFAST 07/02/17 [History] Potassium Chloride 20 meq PO DAILY 07/02/17 [History] buPROPion HCL [Wellbutrin SR] 150 mg PO BID 07/02/17 [History] Albuterol Sulfate [Proair Hfa] 1 - 2 puff INH Q4H PRN 11/23/18 [History] Apixaban [Eliquis] 5 mg PO BID 11/23/18 [History] Lisinopril 10 mg PO DAILY 11/23/18 [History] Multivitamin [Daily Multiple Vitamin] 1 tab PO DAILY 11/23/18 [History] Tiotropium Br/Olodaterol HCl [Stiolto Respimat Inhal [place]] 2 puff INH QAM 11/23 [History] Past Medical History HEENT History: Reports: Other (See Below) Other HEENT History: wears glasses Cardiovascular History: Reports: Hypertension Respiratory History: Reports: SOB Gastrointestinal History: Reports: GERD, Other (See Below) Other Gastrointestinal History: hx of Portaal vein thrombosis, LFT's chronicaly elevated Genitourinary History: Reports: None Musculoskeletal History: Reports: Back Pain, Chronic, Neck Pain, Chronic Neurological History: Reports: None Other Neuro History: hx of claustrophobia Psychiatric History: Reports: Anxiety Endocrine/Metabolic History: Reports: Diabetes, Type II, Hypothyroidism, Other ( See Below) Insulin Pump Model and Workforce Planner: None Hematologic History: Reports: Anemia, Anticoagulation Therapy, Blood Transfusion (s) Immunologic History: Reports: None Oncologic (Cancer) History: Reports: Malignant Melanoma Other Oncologic History: malignant melanoma on back - spread to axilla and then to thyroid Dermatologic History: Reports: Psoriasis - Infectious Disease History Infectious Disease History: Reports: None - Past Surgical History Head Surgeries/Procedures: Reports: None Male Surgical History: Reports: None Social & Family History - Family History Family Medical History: Noncontributory - Tobacco Use Smoking Status *Q: Current Every Day Smoker Years of Tobacco use: 1 Packs/Tins Daily: 0.3 - Caffeine Use Caffeine Use: Reports: Coffee - Recreational Drug Use Recreational Drug Use: Yes Drug Use in Last 12 Months: Yes Recreational Drug Type: Reports: Marijuana/Hashish - Living Situation & Occupation Living situation: Reports: Alone Occupation: Employed Review of Systems - Review of Systems Review Of Systems: See Below (see dictation) ED EXAM, GENERAL - Physical Exam Exam: See Below (see dictation) Course - Vital Signs Last Recorded V/S: Last Vital Signs Temp 97.6 F 07/30/19 00:45 Pulse 130 H 07/30/19 01:15 Resp 20 07/30/19 01:15 BP 113/67 07/30/19 01:15 Pulse Ox 98 07/30/19 01:15 - Orders/Labs/Meds Orders: Active Orders 24 hr Category Date Time Status Admission Status [Patient Status] [ADT] Stat ADT 07/30/19 01:42 Ordered EKG Documentation Completion [RC] STAT Care 07/29/19 23:34 Active Sodium Chloride 0.9% [Normal Saline] 1,000 ml Med 07/30/19 01:40 Active IV .Bolus Medication Orders Sodium Chloride (Normal Saline) 1,000 mls @ 1,000 mls/hr IV .Bolus ONE Stop: 07/30/19 02:39 Labs: Laboratory Tests 07/29/19 07/29/19 07/29/19 Range/Units 23:30 23:30 23:30 WBC 11.06 H (4.0-11.0) K/uL RBC 2.73 L (4.50-5.90) M/uL Hgb 8.4 L (13.0-17.0) g/dL Hct 26.2 L (38.0-50.0) % MCV 96.0 (80.0-98.0) fL MCH 30.8 (27.0-32.0) pg MCHC 32.1 (31.0-37.0) g/dL RDW Std Deviation 78.0 H (28.0-62.0) fl RDW Coeff of Joseph 23 H (11.0-15.0) % Plt Count 124 L (150-400) K/uL MPV 11.00 (7.40-12.00) fL Neut % (Auto) 80.8 H (48.0-80.0) % Lymph % (Auto) 5.5 L (16.0-40.0) % Wake % (Auto) 13.0 (0.0-15.0) % Eos % (Auto) 0.4 (0.0-7.0) % Baso % (Auto) 0.3 (0.0-1.5) % Neut # (Auto) 8.9 H (1.4-5.7) K/uL Lymph # (Auto) 0.6 (0.6-2.4) K/uL Wake # (Auto) 1.4 H (0.0-0.8) K/uL Eos # (Auto) 0.0 (0.0-0.7) K/uL Baso # (Auto) 0.0 (0.0-0.1) K/uL Nucleated RBC % 0.0 /100WBC Nucleated RBCs # 0 K/uL INR 2.49 Sodium 138 (136-148) mmol/L Potassium 3.9 (3.5-5.1) mmol/L Chloride 101 (98-107) mmol/L Carbon Dioxide 17.8 L (21.0-32.0) mmol/L BUN 14 (7.0-18.0) mg/dL Creatinine 1.1 (0.8-1.3) mg/dL Est Cr Clr Drug Dosing TNP Estimated GFR (MDRD) > 60.0 ml/min Glucose 158 H (74-106) mg/dL Calcium 8.8 (8.5-10.1) mg/dL Total Bilirubin 8.7 H (0.2-1.0) mg/dL AST 169 H (15-37) IU/L ALT 55 (14-63) IU/L Alkaline Phosphatase 214 H (46-116) U/L Ammonia (19-54) ug/dL Troponin I < 0.050 (0.000-0.056) ng/mL Total Protein 5.5 L (6.4-8.2) g/dL Albumin 2.1 L (3.4-5.0) g/dL Globulin 3.4 (2.6-4.0) g/dL Albumin/Globulin Ratio 0.6 L (0.9-1.6) Lipase 424 H (73-393) U/L 07/30/19 Range/Units 00:47 WBC (4.0-11.0) K/uL RBC (4.50-5.90) M/uL Hgb (13.0-17.0) g/dL Hct (38.0-50.0) % MCV (80.0-98.0) fL MCH (27.0-32.0) pg MCHC (31.0-37.0) g/dL RDW Std Deviation (28.0-62.0) fl RDW Coeff of Joseph (11.0-15.0) % Plt Count (150-400) K/uL MPV (7.40-12.00) fL Neut % (Auto) (48.0-80.0) % Lymph % (Auto) (16.0-40.0) % Wake % (Auto) (0.0-15.0) % Eos % (Auto) (0.0-7.0) % Baso % (Auto) (0.0-1.5) % Neut # (Auto) (1.4-5.7) K/uL Lymph # (Auto) (0.6-2.4) K/uL Wake # (Auto) (0.0-0.8) K/uL Eos # (Auto) (0.0-0.7) K/uL Baso # (Auto) (0.0-0.1) K/uL Nucleated RBC % /100WBC Nucleated RBCs # K/uL INR Sodium (136-148) mmol/L Potassium (3.5-5.1) mmol/L Chloride (98-107) mmol/L Carbon Dioxide (21.0-32.0) mmol/L BUN (7.0-18.0) mg/dL Creatinine (0.8-1.3) mg/dL Est Cr Clr Drug Dosing Estimated GFR (MDRD) ml/min Glucose (74-106) mg/dL Calcium (8.5-10.1) mg/dL Total Bilirubin (0.2-1.0) mg/dL AST (15-37) IU/L ALT (14-63) IU/L Alkaline Phosphatase (46-116) U/L Ammonia 346 H (19-54) ug/dL Troponin I (0.000-0.056) ng/mL Total Protein (6.4-8.2) g/dL Albumin (3.4-5.0) g/dL Globulin (2.6-4.0) g/dL Albumin/Globulin Ratio (0.9-1.6) Lipase (73-393) U/L Meds: Medications Generic Name Dose Route Start Last Admin Trade Name Freq PRN Reason Stop Dose Admin Sodium Chloride 1,000 mls @ 1,000 mls/hr 07/30/19 01:40 Normal Saline IV 07/30/19 02:39 .Bolus ONE Discontinued Medications Generic Name Dose Route Start Last Admin Trade Name Freq PRN Reason Stop Dose Admin Iopamidol 100 ml 07/30/19 00:35 07/30/19 00:36 Isovue-370 (76%) IVPUSH 07/30/19 00:36 100 ml ONETIME ONE Administration Lactulose Confirm 07/30/19 01:22 07/30/19 01:34 Chronulac Administered 07/30/19 01:23 Not Given Dose 30 gm .ROUTE .STK-MED ONE Lactulose 20 gm 07/30/19 01:25 07/30/19 01:35 Chronulac PO 07/30/19 01:26 20 gm ONETIME STA Administration Departure - Departure Time of Disposition: 01:45 Disposition: Refer to Observation Condition: Fair Clinical Impression: Hyperammonemia, Syncope, Pancreatic mass, Cirrhosis - Discharge Information Referrals: Wilver Amin MD [Primary Care Provider] - Forms: ED Department Discharge Sepsis Event Note - Evaluation Sepsis Screening Result: No Definite Risk - Focused Exam Vital Signs: Vital Signs Temp Pulse Resp BP Pulse Ox 07/30/19 01:15 130 H 20 113/67 98 07/30/19 00:45 97.6 F 132 H 20 108/61 98 07/29/19 23:30 97.3 F 142 H 20 111/70 97 Date Exam was Performed: 07/30/19 Time Exam was Performed: 01:44 - My Orders Last 24 Hours: My Active Orders 07/29/19 23:34 EKG Documentation Completion [RC] STAT 07/30/19 01:40 Sodium Chloride 0.9% [Normal Saline] 1,000 ml IV .Bolus 07/30/19 01:42 Admission Status [Patient Status] [ADT] Stat - Assessment/Plan Last 24 Hours: My Active Orders 07/29/19 23:34 EKG Documentation Completion [RC] STAT 07/30/19 01:40 Sodium Chloride 0.9% [Normal Saline] 1,000 ml IV .Bolus 07/30/19 01:42 Admission Status [Patient Status] [ADT] Stat
[2019-07-30] MEDS: Insulin Aspart 100 Units/ML 3 ML Pen SUBCUT SCH ×2 (06:34→11:24)
[2019-07-30] MEDS ORDERED: Ondansetron 4 MG/2 ML SDV IVPUSH PRN (08:09)
--- NOTE | 2019-07-30 08:54 | US ---
Limited abdominal ultrasound: Multiple real-time images were obtained of the abdomen. Ascites is identified. Liver is irregular in contour and small compatible with cirrhosis. Spleen size measures within normal limits. Kidneys show no hydronephrosis or mass. Right kidney length is 11.0 cm and left kidney length is 11.9 cm. Cystic area noted near or within the head of the pancreas measuring 4.4 cm. Other portions of the pancreas not well seen. Gallbladder not visualized with certainty. Common bile duct not well seen with no indirect evidence of biliary duct dilatation. Fluid material is seen within the stomach. Aorta not well seen. Impression: 1. Mild ascites with changes within the liver compatible with cirrhosis. 2. Cystic area near or within pancreatic head measuring 4.4 cm. Differential includes pseudocyst versus loculated area of ascitic fluid. 3. No additional abnormality is appreciated on abdominal ultrasound exam. Diagnostic code #3 This report was dictated in MDT
[2019-07-30] MEDS ORDERED: Lactulose Soln 10 GM/15 ML 15 ML UD Cup PO ONE (09:04)
[2019-07-30] MEDS ORDERED: Thiamine 200 MG/2 ML MDV IVPUSH SCH (09:15)
[2019-07-30] MEDS ORDERED: cefTRIAXone 2 GM in Premix Bag 1 BAG IV SCH (09:15)
[2019-07-30] MEDS ORDERED: Folic Acid 50 MG/10 ML MDV SUBCUT SCH (09:15)
[2019-07-30] MEDS ORDERED: Sodium Chloride 0.9% 1,000 ML IV SCH (09:15)
--- NOTE | 2019-07-30 09:38 | PCM.HP.2 ---
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 His daughter reported he had LOC per ED report. This morning patient is unable to provide any history and is altered. Patient disoriented x 3. Upon review of oncology records, he has not received any treatements since 2017, due to stable disease as well as immunotherapy side effects of skin rash, hepatitis, and pancreatitis. He has been on anticoagulation since 2018 due to portal vein thrombosis. In the ED mild leukocytosis noted at 11,060, hgb 8.4 hct 26.2, platelets 124, 000 INR 2.49, bi carb 17.8, bili 8.7 AST 169, ALT 55, alk phos 214. Ammonia 346. Head CT obtained due to fall, which was reported negative for hemorrhage or mass. CXR revealed new linear atelectasis in the left superior perihilar lung , Abb/pelvis CT revealed nodular contour liver with innumerable small hypodense lesions present, likely micronodular cirrhosis. Small to moderate ascites noted , low density lesion within pancreatic head measuring 3.6 x 2.8 cm, possible pseudocyst or cystic necrotic pancreatic mass. He was given 1 L NS in the ED and admitted for liver failure. - Related Data Allergies/Adverse Reactions: Allergies Allergy/AdvReac Type Severity Reaction Status Date / Time No Known Allergies Allergy Verified 07/30/19 04:00 Home Medications: Home Meds Levothyroxine 75 mcg PO ACBREAKFAST 07/02/17 [History] Omeprazole 20 mg PO ACBREAKFAST 07/02/17 [History] Potassium Chloride 20 meq PO DAILY 07/02/17 [History] buPROPion HCL [Wellbutrin SR] 150 mg PO BID 07/02/17 [History] Albuterol Sulfate [Proair Hfa] 1 - 2 puff INH Q4H PRN 11/23/18 [History] Apixaban [Eliquis] 5 mg PO BID 11/23/18 [History] Lisinopril 40 mg PO DAILY 11/23/18 [History] Multivitamin [Daily Multiple Vitamin] 1 tab PO DAILY 11/23/18 [History] Tiotropium Br/Olodaterol HCl [Stiolto Respimat Inhal [place]] 2 puff INH QAM 11/23 [History] Past Medical History HEENT History: Reports: Other (See Below) Other HEENT History: wears glasses Cardiovascular History: Reports: Hypertension Respiratory History: Reports: SOB Gastrointestinal History: Reports: GERD, Other (See Below) Other Gastrointestinal History: hx of Portaal vein thrombosis, LFT's chronicaly elevated Genitourinary History: Reports: None Musculoskeletal History: Reports: Back Pain, Chronic, Neck Pain, Chronic Neurological History: Reports: None Other Neuro History: hx of claustrophobia Psychiatric History: Reports: Anxiety Endocrine/Metabolic History: Reports: Diabetes, Type II, Hypothyroidism, Other ( See Below) Insulin Pump Model and Cylinder Inspector: None Hematologic History: Reports: Anemia, Anticoagulation Therapy, Blood Transfusion (s) Immunologic History: Reports: None Oncologic (Cancer) History: Reports: Malignant Melanoma Other Oncologic History: malignant melanoma on back - spread to axilla and then to thyroid Dermatologic History: Reports: Psoriasis - Infectious Disease History Infectious Disease History: Reports: None - Past Surgical History Head Surgeries/Procedures: Reports: None Male Surgical History: Reports: None Social & Family History - Family History Family Medical History: Noncontributory - Tobacco Use Smoking Status *Q: Current Every Day Smoker Years of Tobacco use: 30 Packs/Tins Daily: 2 - Caffeine Use Caffeine Use: Reports: Coffee - Recreational Drug Use Recreational Drug Use: Yes Drug Use in Last 12 Months: Yes Recreational Drug Type: Reports: Marijuana/Hashish Recreational Drug Use Frequency: Socially - Living Situation & Occupation Living situation: Reports: Alone Occupation: Employed H&P Review of Systems - Review of Systems: Review Of Systems: Unable To Obtain Reason Not Obtained: altered mental status Exam - Exam Exam: See Below - Vital Signs Vital Signs: Last Vital Signs Temp 97.8 F 07/30/19 07:34 Pulse 143 H 07/30/19 07:34 Resp 24 H 07/30/19 07:34 BP 108/58 L 07/30/19 07:34 Pulse Ox 99 07/30/19 07:34 Weight: 66.1 kg - Exam General: Obtunded HEENT: Conjunctiva Clear, Scleral Icterus. No: Mucosa Moist & [place] (dry) Lungs: Clear to Auscultation. No: Normal Respiratory Effort (dyspneic) Cardiovascular: Tachycardia GI/Abdominal Exam: Normal Bowel Sounds, Distended, Other (ascites noted) Extremities: Normal Inspection, Normal Range of Motion, Non-Tender, No Pedal Edema Skin: Other (jaundice) Neuro Extensive - Mental Status: Slow Response to Commands, Other (will not follow commands) - Patient Data Lab Results Last 24 hrs: Laboratory Results - last 24 hr 07/29/19 07/29/19 07/29/19 Range/Units 23:30 23:30 23:30 WBC 11.06 H (4.0-11.0) K/uL RBC 2.73 L (4.50-5.90) M/uL Hgb 8.4 L (13.0-17.0) g/dL Hct 26.2 L (38.0-50.0) % MCV 96.0 (80.0-98.0) fL MCH 30.8 (27.0-32.0) pg MCHC 32.1 (31.0-37.0) g/dL RDW Std Deviation 78.0 H (28.0-62.0) fl RDW Coeff of Joseph 23 H (11.0-15.0) % Plt Count 124 L (150-400) K/uL MPV 11.00 (7.40-12.00) fL Neut % (Auto) 80.8 H (48.0-80.0) % Lymph % (Auto) 5.5 L (16.0-40.0) % [place] % (Auto) 13.0 (0.0-15.0) % Eos % (Auto) 0.4 (0.0-7.0) % Baso % (Auto) 0.3 (0.0-1.5) % Neut # (Auto) 8.9 H (1.4-5.7) K/uL Lymph # (Auto) 0.6 (0.6-2.4) K/uL [place] # (Auto) 1.4 H (0.0-0.8) K/uL Eos # (Auto) 0.0 (0.0-0.7) K/uL Baso # (Auto) 0.0 (0.0-0.1) K/uL Nucleated RBC % 0.0 /100WBC Nucleated RBCs # 0 K/uL INR 2.49 Sodium 138 (136-148) mmol/L Potassium 3.9 (3.5-5.1) mmol/L Chloride 101 (98-107) mmol/L Carbon Dioxide 17.8 L (21.0-32.0) mmol/L BUN 14 (7.0-18.0) mg/dL Creatinine 1.1 (0.8-1.3) mg/dL Est Cr Clr Drug Dosing TNP Estimated GFR (MDRD) > 60.0 ml/min Glucose 158 H (74-106) mg/dL POC Glucose (60-110) mg/dL Calcium 8.8 (8.5-10.1) mg/dL Total Bilirubin 8.7 H (0.2-1.0) mg/dL AST 169 H (15-37) IU/L ALT 55 (14-63) IU/L Alkaline Phosphatase 214 H (46-116) U/L Ammonia (19-54) ug/dL Troponin I < 0.050 (0.000-0.056) ng/mL Total Protein 5.5 L (6.4-8.2) g/dL Albumin 2.1 L (3.4-5.0) g/dL Globulin 3.4 (2.6-4.0) g/dL Albumin/Globulin Ratio 0.6 L (0.9-1.6) Lipase 424 H (73-393) U/L Acetaminophen ug/mL 07/29/19 07/30/19 07/30/19 Range/Units 23:30 00:47 06:14 WBC (4.0-11.0) K/uL RBC (4.50-5.90) M/uL Hgb (13.0-17.0) g/dL Hct (38.0-50.0) % MCV (80.0-98.0) fL MCH (27.0-32.0) pg MCHC (31.0-37.0) g/dL RDW Std Deviation (28.0-62.0) fl RDW Coeff of Joseph (11.0-15.0) % Plt Count (150-400) K/uL MPV (7.40-12.00) fL Neut % (Auto) (48.0-80.0) % Lymph % (Auto) (16.0-40.0) % [place] % (Auto) (0.0-15.0) % Eos % (Auto) (0.0-7.0) % Baso % (Auto) (0.0-1.5) % Neut # (Auto) (1.4-5.7) K/uL Lymph # (Auto) (0.6-2.4) K/uL [place] # (Auto) (0.0-0.8) K/uL Eos # (Auto) (0.0-0.7) K/uL Baso # (Auto) (0.0-0.1) K/uL Nucleated RBC % /100WBC Nucleated RBCs # K/uL INR Sodium (136-148) mmol/L Potassium (3.5-5.1) mmol/L Chloride (98-107) mmol/L Carbon Dioxide (21.0-32.0) mmol/L BUN (7.0-18.0) mg/dL Creatinine (0.8-1.3) mg/dL Est Cr Clr Drug Dosing Estimated GFR (MDRD) ml/min Glucose (74-106) mg/dL POC Glucose 137 H (60-110) mg/dL Calcium (8.5-10.1) mg/dL Total Bilirubin (0.2-1.0) mg/dL AST (15-37) IU/L ALT (14-63) IU/L Alkaline Phosphatase (46-116) U/L Ammonia 346 H (19-54) ug/dL Troponin I (0.000-0.056) ng/mL Total Protein (6.4-8.2) g/dL Albumin (3.4-5.0) g/dL Globulin (2.6-4.0) g/dL Albumin/Globulin Ratio (0.9-1.6) Lipase (73-393) U/L Acetaminophen <2.0 ug/mL Result Diagrams: 07/30/19 09:16 07/30/19 09:16 Sepsis Event Note - Evaluation Sepsis Screening Result: No Definite Risk - Focused Exam Vital Signs: Vital Signs Temp Temp Pulse Resp BP Pulse Ox 05/01/20 07:34 97.8 F 143 H 24 H 108/58 L 99 07/30/19 02:20 98.6 F 130 H 18 113/60 97 07/30/19 02:00 96.8 F L 126 H 20 101/62 98 07/30/19 01:15 130 H 20 113/67 98 07/30/19 00:45 97.6 F 132 H 20 108/61 98 07/29/19 23:30 97.3 F 142 H 20 111/70 97 Date Exam was Performed: 07/30/19 Time Exam was Performed: 11:24 - Problem List (1) Alcoholic hepatitis SNOMED Code(s): 688864989 ICD Code: K70.10 - ALCOHOLIC HEPATITIS WITHOUT ASCITES Status: Acute Current Visit: Yes Qualifiers: Ascites presence: with ascites Qualified Code(s): K70.11 - Alcoholic hepatitis with ascites (2) Liver failure, acute SNOMED Code(s): 007065376 ICD Code: K72.00 - ACUTE AND SUBACUTE HEPATIC FAILURE WITHOUT COMA Status: Acute Current Visit: Yes (3) Metabolic encephalopathy SNOMED Code(s): 73439124 ICD Code: G93.41 - METABOLIC ENCEPHALOPATHY Status: Acute Current Visit: Yes (4) Syncope SNOMED Code(s): 129064574 ICD Code: R55 - SYNCOPE AND COLLAPSE Status: Acute Current Visit: Yes (5) Hyperammonemia SNOMED Code(s): 5065821 ICD Code: E72.20 - DISORDER OF UREA CYCLE METABOLISM, UNSPECIFIED Status: Acute Current Visit: Yes (6) Cirrhosis SNOMED Code(s): 82995448 ICD Code: K74.60 - UNSPECIFIED CIRRHOSIS OF LIVER Status: Chronic Current Visit: Yes Qualifiers: Ascites presence: with ascites (7) Pancreatic mass SNOMED Code(s): 703336786 ICD Code: K86.89 - OTHER SPECIFIED DISEASES OF PANCREAS Status: Acute Current Visit: Yes (8) DM type 2 (diabetes mellitus, type 2) SNOMED Code(s): 50757202 ICD Code: E11.9 - TYPE 2 DIABETES MELLITUS WITHOUT COMPLICATIONS Status: Chronic Current Visit: No Qualifiers: Diabetes mellitus [employer] insulin use: with group home use Diabetes mellitus complication status: without complication Qualified Code(s): E11.9 - Type 2 diabetes mellitus without complications; Z79.4 - custodial (current) use of insulin (9) HTN (hypertension) SNOMED Code(s): 69731151 ICD Code: I10 - ESSENTIAL (PRIMARY) HYPERTENSION Status: Chronic Current Visit: No Qualifiers: Hypertension type: essential hypertension Qualified Code(s): I10 - Essential (primary) hypertension (10) Hypothyroidism SNOMED Code(s): 74147860 ICD Code: E03.9 - HYPOTHYROIDISM, UNSPECIFIED Status: Chronic Current Visit: No Qualifiers: Hypothyroidism type: acquired Qualified Code(s): E03.9 - Hypothyroidism, unspecified (11) Malignant melanoma, metastatic SNOMED Code(s): 410093893 ICD Code: C79.9 - SECONDARY MALIGNANT NEOPLASM OF UNSPECIFIED SITE Status: Chronic Current Visit: No (12) Tobacco abuse SNOMED Code(s): 700626211 ICD Code: Z72.0 - TOBACCO USE Status: Chronic Current Visit: Yes (13) Alcohol abuse SNOMED Code(s): 04446526 ICD Code: F10.10 - ALCOHOL ABUSE, UNCOMPLICATED Status: Chronic Current Visit: Yes Problem List Initiated/Reviewed/Updated: Yes Orders Last 24hrs: Active Orders 24 hr Category Date Time Status Admission Status [Patient Status] [ADT] Stat ADT 07/30/19 01:42 Active Blood Glucose Check, Bedside [RC] TIDMEALS Care 07/30/19 03:37 Active Height and Weight [RC] DAILY Care 07/30/19 08:09 Active Intake and Output [RC] Q12H Care 07/30/19 08:09 Active Oxygen Therapy [RC] PRN Care 07/30/19 08:09 Active Telemetry Monitoring [Cardiac Monitoring] [RC] . Care 07/30/19 08:52 Active DIRECTED Up With Assistance [RC] ASDIRECTED Care 07/30/19 08:09 Active VTE/DVT Education [RC] PER UNIT ROUTINE Care 07/30/19 08:09 Active Vital Signs [RC] Q4H Care 07/30/19 08:09 Active Nothing Per Oral Diet [DIET] Diet 07/30/19 Breakfast Active AMMONIA VENOUS [CHEM] Routine Lab 07/30/19 09:16 Received CBC WITH AUTO DIFF [HEME] Routine Lab 07/30/19 09:16 Received COMPREHENSIVE METABOLIC PN,CMP [CHEM] Routine Lab 07/30/19 09:16 Received MAGNESIUM [CHEM] Routine Lab 07/30/19 09:16 Received PHOSPHORUS [CHEM] Routine Lab 07/30/19 09:16 Received Folic Acid Med 07/30/19 09:15 Active 1 mg SUBCUT DAILY Insulin Aspart [NovoLOG] Med 07/30/19 07:30 Active See Protocol SUBCUT TIDAC Ondansetron [Zofran] Med 07/30/19 08:09 Active 4 mg IVPUSH Q4H PRN Sodium Chloride 0.9% [Normal Saline] 1,000 ml Med 07/30/19 09:15 Active IV ASDIRECTED Thiamine [Vitamin B-1] Med 07/30/19 09:15 Active 100 mg IVPUSH DAILY cefTRIAXone [Rocephin in Dextrose,Iso-Osm 2 GM/50 ML] 2 Med 07/30/19 09:15 Active gm Premix Bag 1 bag IV Q24H Obtain Past Medical Record [OM.PC] Routine Oth 07/30/19 08:10 Active Medication Orders Folic Acid (Folic Acid) 1 mg SUBCUT DAILY [facility] Last Admin: 07/30/19 09:20 Dose: 1 mg Ceftriaxone Sodium/Dextrose 2 (gm/ Premix) 50 mls @ 100 mls/hr IV Q24H [facility] Last Admin: 07/30/19 09:32 Dose: 100 mls/hr Sodium Chloride (Normal Saline) 1,000 mls @ 125 mls/hr IV ASDIRECTED ANGELITO Last Admin: 07/30/19 09:31 Dose: 125 mls/hr Insulin Aspart (Novolog) 0 unit SUBCUT TIDAC [facility]; Protocol Last Admin: 07/30/19 06:34 Dose: Not Given Ondansetron HCl (Zofran) 4 mg IVPUSH Q4H PRN PRN Reason: Nausea Thiamine HCl (Vitamin B-1) 100 mg IVPUSH DAILY [facility] Last Admin: 07/30/19 09:19 Dose: 100 mg Assessment/Plan Comment:: This 58 year old male admitted with liver failure, syncope and AMS 1. Acute alcoholic hepatitis with metabolic encephalopathy - Patient unable to follow commands and doesn't answer questions appropriately - Will treat with Rocephin 2 gm IV now, empirically. - Repeat labwork this morning. - RUQ US shows liver cirrhosis, no ductal dilation. Continues to see pancreatic head mass. - Ammonia elevated with encephalopathy will give another dose of lactulose this morning - Tachycardia noted, likely intravascularly depleted. Start IVF NS 125 now. Monitor on telemetry - Obtained Tylenol level and hepatitis panel. Had extensive conversation with brother Jax as well as sister Connie who is a surgeon in [place]. After discussion regarding concerns, we did recommend possible Hospice, but family would like him to be evaluated by GI specialist and have requested transfer. Family was updated on poor prognosis after recent labwork returned. I spoke on phone conference with Connie as well as [facility] three children, Torsten, Jaciel and Humphrey. They are all in agreement they want their father transferred and agree they want him FULL CODE. I spoke with Dr Fulton at [facility] in [place] regarding transfer and family request. Dr Fulton has accepted patient for transfer. Will be transferred via flight today. Due to elevated leukocytosis, will Flagyl to Rocepmen. Bicarb noted to be 7.6, will add another 1 L bolus of fluid. Dr Madrigal involved in care throughout. - Mortality Measure Prognosis:: Poor
[2019-07-30 10:17] LABS: CARBON DIOXIDE,CO2 7.6 mmol/L (21.0-32.0); POTASSIUM,K 4.2 mmol/L (3.5-5.1)
[2019-07-30 11:24] VITALS: BP 121/56; PULSE 126
[2019-07-30] MEDS ORDERED: metroNIDAZOLE/Normal Saline 500 MG in Premix Bag 1 BAG IV SCH (12:00)
== END 2019-07-30 11:55 ==
LOC: MW.ED 23:29 → MW.MS 07-30 01:42
PROVIDERS: ADMIT Internal Medicine; ATTEND Internal Medicine
DX: K70.11 Alcoholic hepatitis with ascites (principal); K74.60 Unspecified cirrhosis of liver; F10.188 Alcohol abuse with other alcohol-induced disorder; K72.00 Acute and subacute hepatic failure without coma; K86.89 Other specified diseases of pancreas; G93.41 Metabolic encephalopathy; E72.20 Disorder of urea cycle metabolism, unspecified; C79.89 Secondary malignant neoplasm of other specified sites; C43.59 Malignant melanoma of other part of trunk; I10 Essential (primary) hypertension; K21.9 Gastro-esophageal reflux disease without esophagitis; E11.9 Type 2 diabetes mellitus without complications; E03.9 Hypothyroidism, unspecified; F17.210 Nicotine dependence, cigarettes, uncomplicated; Z79.4 Long term (current) use of insulin; Z79.890 Hormone replacement therapy; Z79.899 Other long term (current) drug therapy; Z79.01 Long term (current) use of anticoagulants
CPT/HCPCS: 36415; 70450; 71045; 74177; 76700; 80053; 80074; 80307; 82140; 82962; 83690; 83735; 84100; 84484; 85025; 85610; 87040; 93005; 99285; A9270; J0696; J3411; J3490; J7030; Q9967; 99284